=== PATIENT | male | born 1965 | race Hispanic/Latino ===

== ENCOUNTER 2022-07-23 14:49 | Inpatient (IN) | payer OTHER ==
--- OUTSIDE RECORDS SUMMARY | 2022-07-23 14:52 | XMS REPORT | Continuity of Care Document ---
:1965 Author Organization [facility] t Address [address] [place] [address] [address] [place] [address] Care Team Providers Name Role Phone RASHIDA DIAZ Primary Care Physician Unavailable RASHIDA DIAZ Attending Clinician Unavailable Sven OWUSU, Rashida Attending Clinician RAHSIDA DIAZ Admitting Clinician Unavailable Payers Payer Name Policy Type Policy Number Effective Date Expiration Date S brigido [employer] [id number] 2021 MEDICARE 00:00:00 [employer] TRUE CHOICE [id number] 2021 MEDICARE 00:00:00 Problems This patient has no known problems. Allergies, Adverse Reactions, Alerts Allergy Allergy Status Severity Reaction(s) Onset Inactive Treating Comm ents Source Name Type Date Date Clinician NO KNOWN Drug Active [facility] Social History Social Habit Start Date Stop Date Quantity Comments Source Exposure to 2021-06-16 2021-06-26 Not sure [facility] SARS-CoV-2 (event) 00:00:00 14:11:00 Medica l Branch Sex Assigned At [birth year] [facility] 00:00:00 00:00:00 Medical Branch Smoking Status Start Date Stop Date Source Unknown if ever smoked [facility] Medications This patient has no known medications. Procedures Procedure Date / Time Performing Clinician Source Performed US RETROPERITONEAL 2021-07-03 17:10:00 Rashida Diaz [facility] COMPLETE Medical Branch Encounters Start End Encounter Admission Attending Care Care Encounter Source Date/Time Date/Time Type Type Clinicians Facility Department ID 2021-07-17 Outpatient [facility] [id number] [place] 09:10:10 [id number] [facility] 2021-07-15 Outpatient [facility] [id number] [place] 13:16:00 [id number] [facility] 2021-07-03 2021-07-03 Outpatient Emilia DIAZ [facility] [id number] [facility] 11:51:28 23:59:00 [facility]-03 2021-07-03 [facility] Sven [facility] [id number] Univers 11:30:00 23:59:00 Encounter Rashida [facility] [id number] [facility] [id number] [facility] [id number] [facility] [address] [place] 2021-07-03 2021-07-03 Outpatient Emilia DIAZ [facility] [id number] Univers 13:00:00 13:00:00 RASHIDA [id number] [facility] Results This patient has no known results.
[2022-07-23] MEDS ORDERED: FUROSEMIDE 40 MG/4 ML VIAL ONE (15:11)
[2022-07-23] MEDS ORDERED: NITROGLYCERIN 1 GM PKT TD ONE (15:11)
[2022-07-23 15:46] LABS: Absolute Lymphocytes (CBC) 0.5 K/uL (0.7-4.9); Hematocrit 21.9 % (39.6-49.0); Lymphocytes % 4.4 % (15.3-44.8); MCV 90.2 fL (80-100); MPV 8.1 fL (7.6-11.3); RBC Red Blood Cell Count 2.43 M/uL (4.33-5.43)
[2022-07-23 15:49] LABS: Protime INR 1.07
[2022-07-23 16:04] LABS: ALT/SGPT < 10 U/L (16-61); AST/SGOT 10 U/L (15-37); Alkaline Phosphatase 44 U/L (45-117); BUN Blood Urea Nitrogen 86 mg/dL (7-18); Bicarbonate 18 mEq/L (21-32); Bilirubin Direct 0.1 mg/dL (0-0.2); Bilirubin Indirect, Calculated 0.2 mg/dL (0.2-0.8); Bilirubin Total 0.3 mg/dL (0.2-1.0); Glomerular Filtration Rate 10 ml/min (=/>90); Glucose Level 115 mg/dL (74-106); Magnesium 2.9 mg/dL (1.6-2.4); NT PRO-BNP 18905 pg/mL (<125); Potassium 4.2 mEq/L (3.5-5.1); Protein, Total 6.8 g/dL (6.4-8.2); Sodium Level 141 mEq/L (136-145)
[2022-07-23 16:08] LABS: Troponin High Sensitivity 103.6 pg/mL (<58.9)
--- NOTE | 2022-07-23 16:51 | ER ---
Nurse's Notes [facility] Name: Zack Chapa Age: 57 yrs Sex: Male : 1965 Arrival Date: 07/23/2022 Time: 14:49 Bed 6 Private MD: Diagnosis: respiratory distress ;Acute and chronic respiratory failure with hypoxia;Subsequent non-ST elevation (NSTEMI) myocardial infarction;Acute pulmonary edema Presentation: 07/23 14:52 Chief complaint: Patient states: SOB for at least 24 hours. Swelling to legs got ll1 significantly worse overnight. No known fever. Chief complaint: EMS states: Ronchi bilaterally. FS 141, CPAP. HR 140's, down to 90's after CPAP. Coronavirus screen: Vaccine status: Patient reports receiving the 2nd dose of the covid vaccine. Client denies travel out of the [place] in the last 14 days. cough unrelated to allergies, difficulty breathing, shortness of breath, Client presents with at least one sign or symptom that may indicate coronavirus-19. Standard/surgical mask placed on the client. Ebola Screen: Patient denies travel to an Ebola-affected area in the 21 days before illness onset. Initial Sepsis Screen: Does the patient meet any 2 criteria? No. Patient's initial sepsis screen is negative. Does the patient have a suspected source of infection? Yes: Productive cough/pneumonia. Risk Assessment: Do you want to hurt yourself or someone else? Patient reports no desire to harm self or others. Onset of symptoms was July 22, 2022. 14:52 Method Of Arrival: Ambulatory ll1 14:52 Acuity: BETTY 2 ll1 Triage Assessment: 19:56 Respiratory: Onset: The symptoms/episode began/occurred yesterday, the patient has ha1 moderate shortness of breath. Historical: - Allergies: 14:55 No Known Allergies; ll1 - PMHx: 14:55 Diabetes mellitus; Hypertensive disorder; Kidney disease; blind R eye; ll1 - Immunization history:: Client reports receiving the 2nd dose of the Covid vaccine. - Social history:: Smoking status: Patient denies any tobacco usage or history of. Screenin:56 [facility] ED Fall Risk Assessment (Adult) History of falling in the last 3 months, kc6 including since admission No falls in past 3 months (0 pts) Confusion or Disorientation No (0 pts) Intoxicated or Sedated No (0 pts) Impaired Gait No (0 pts) Mobility Assist Device Used No (0 pt) Altered Elimination Yes (1 pt) Score/Fall Risk Level 0 - 2 = Low Risk Oriented to surroundings, Maintained a safe environment, Educated pt \T\ family on fall prevention, incl call for assistance when getting out of bed, Assessed \T\ reinforced patient's understanding of fall precautions, Hourly rounding (assess needs \T\ fall precautionary measures) done. Abuse screen: Denies threats or abuse. Denies injuries from another. Nutritional screening: No deficits noted. Tuberculosis screening: No symptoms or risk factors identified. Assessment: 14:58 Reassessment: respiratory at bedside placing pt on bipap. General: Appears in no kc6 apparent distress. uncomfortable, Behavior is calm, cooperative, appropriate for age. Pain: Denies pain. Neuro: Sweeney Agitation-Sedation Scale (RASS): 0 - Alert and Calm Level of Consciousness is awake, alert, obeys commands, Oriented to person, place, time, situation, Appropriate for age. Cardiovascular: Heart tones S1 S2 present Capillary refill < 3 seconds Edema is 4+ to left midcalf, left ankle, left foot, left toes, left upper arm, left elbow, left forearm, left wrist, left hand, left fingers, right midcalf, right ankle, right foot and right toes Rhythm is sinus rhythm Chest pain is denied. Respiratory: Reports shortness of breath at rest on exertion labored breathing Airway is patent Trachea midline Respiratory effort is even, labored, Respiratory pattern is symmetrical, tachypnea Breath sounds with crackles bilaterally. Breath sounds with rhonchi bilaterally. GI: No signs and/or symptoms were reported involving the gastrointestinal system. : No signs and/or symptoms were reported regarding the genitourinary system. EENT: No signs and/or symptoms were reported regarding the EENT system. Derm: No signs and/or symptoms reported regarding the dermatologic system. Skin is intact, Skin is pink, warm \T\ dry. Musculoskeletal: No signs and/or symptoms reported regarding the musculoskeletal system. Circulation, motion, and sensation intact. Capillary refill < 3 seconds, Range of motion: intact in all extremities. 15:42 Reassessment: Patient appears in no apparent distress at this time. No changes from kc6 previously documented assessment. Patient and/or family updated on plan of care and expected duration. Pain level reassessed. Patient is alert, oriented x 3, equal unlabored respirations, skin warm/dry/pink. 16:34 Reassessment: Patient appears in no apparent distress at this time. No changes from kc6 previously documented assessment. Patient and/or family updated on plan of care and expected duration. Pain level reassessed. Patient is alert, oriented x 3, equal unlabored respirations, skin warm/dry/pink. 17:34 Reassessment: Patient appears in no apparent distress at this time. No changes from kc6 previously documented assessment. Patient and/or family updated on plan of care and expected duration. Pain level reassessed. Patient is alert, oriented x 3, equal unlabored respirations, skin warm/dry/pink. 17:45 Reassessment: please see [facility] for further charting. kc6 Vital Signs: 14:52 BP 158 / 89; Pulse 97; Resp 25; Temp 99; Pulse Ox 99% ; Weight 115.21 kg; Height 5 ft. ll1 11 in. ; Pain 0/10; 15:42 BP 144 / 72; Pulse 87; Resp 20 S; Pulse Ox 99% on BiPAP; kc6 16:34 BP 145 / 81; Pulse 88; Resp 19 S; Pulse Ox 97% on BiPAP; kc6 17:56 BP 169 / 85; Pulse 88; Resp 19 S; Pulse Ox 99% on BiPAP; kc6 14:52 Body Mass Index 35.42 (115.21 kg, 180.34 cm) ll1 14:52 Pain Scale: Adult ll1 ED Course: 14:52 Patient arrived in ED. ll1 14:52 Fausto Marinelli MD is Attending Physician. jr11 14:55 Triage completed. ll1 14:56 Brenda Marquez, NYDIA is Primary Nurse. kc6 14:56 Arm band placed on Patient placed in an exam room, on a stretcher. ll1 14:56 Maintain EMS IV. Dressing intact. Good blood return noted. Site clean \T\ dry. Gauge \T\ jasen 6 site: 20G R HAND. 14:57 Patient has correct armband on for positive identification. Placed in gown. Bed in low kc6 position. Call light in reach. Side rails up X2. Client placed on continuous cardiac and pulse oximetry monitoring. NIBP monitoring applied. dry wall installer on. 15:27 Coud inserted, using sterile technique, 18 Fr. Returned clear yellow urine. To gravity kc6 drainage. Clamped. 16:34 XRAY Chest (1 view) In Process Unspecified. EDMS 16:49 Yaw Lora MD is Hospitalizing Provider. [facility] 19:55 No provider procedures requiring assistance completed. Patient admitted, IV remains in ha1 place. Administered Medications: 15:28 Drug: Nitroglycerin Transdermal Ointment 2 % 1 inches Route: Transdermal; Site: kc6 anterior chest wall; 17:56 Follow up: Response: No adverse reaction kc6 15:28 Drug: Furosemide IVP 80 mg Route: IVP; Site: right hand; kc6 17:56 Follow up: Response: No adverse reaction kc6 Medication: 19:56 VIS not applicable for this client. 1 Outcome: 16:51 Decision to Hospitalize by Provider. jr 19:55 Admitted to ICU accompanied by nurse, via stretcher, room 6, with oxygen, on monitor, [facility] with chart, Report called to NYDIA Gramajo 19:55 Condition: stable 19:55 Discharge instructions given to patient, Instructed on the need for admit, Demonstrated understanding of instructions. 20:47 Patient left the ED. kl Signatures: Dispatcher [employer] EDUT Eladia Lancaster RN RN kl Lewis, Lynsay, RN RN 1 Fausto Marinelli MD MD jr11 Sammie Tran RN RN ha1 Brenda Marquez RN RN kc6 Corrections: (The following items were deleted from the chart) 14:59 14:52 115.21 kg; Height 5 ft. 11 in.; BMI: 35.4; Pain 0/10, Adult; ll1 ll1
--- NOTE | 2022-07-23 16:51 | EDPHYS ---
Physician Documentation [facility] Name: Zack Chapa Age: 57 yrs Sex: Male : 1965 Arrival Date: 07/23/2022 Time: 14:49 Bed 6 Private MD: ED Physician Fausto Marinelli HPI: 07/23 16:04 Patient is a 57-year-old with history of diabetes hypertension kidney disease stroke jr11 blind on the right I here with shortness of breath, worsening over the last 2 days. Patient has had increasing swelling over the last few weeks, history of chronic kidney disease. Patient only complaining of shortness of breath, denies any fever denies any pain anywhere, review of system otherwise negative.. Historical: - Allergies: 14:55 No Known Allergies; ll1 - PMHx: 14:55 Diabetes mellitus; Hypertensive disorder; Kidney disease; blind R eye; ll1 - Immunization history:: Client reports receiving the 2nd dose of the Covid vaccine. - Social history:: Smoking status: Patient denies any tobacco usage or history of. ROS: 16:04 All other systems are negative. jr11 Exam: 16:04 Constitutional: Moderate distress secondary to increased work of breathing Head/Face: jr11 Blind to the right eye Chest/axilla: Normal chest wall appearance and motion. Nontender with no deformity. No lesions are appreciated. Cardiovascular: Regular rate and rhythm with a normal S1 and S2. No gallops, murmurs, or rubs. Normal PMI, no JVD. No pulse deficits. Respiratory: Bibasilar Rales with mild to moderate increased work of breathing. Abdomen/GI: Soft, non-tender, with normal bowel sounds. No distension or tympany. No guarding or rebound. No evidence of tenderness throughout. Back: No spinal tenderness. No costovertebral tenderness. Full range of motion. MS/ Extremity: 2+to sacrum Vital Signs: 14:52 BP 158 / 89; Pulse 97; Resp 25; Temp 99; Pulse Ox 99% ; Weight 115.21 kg; Height 5 ft. ll1 11 in. ; Pain 0/10; 15:42 BP 144 / 72; Pulse 87; Resp 20 S; Pulse Ox 99% on BiPAP; kc6 16:34 BP 145 / 81; Pulse 88; Resp 19 S; Pulse Ox 97% on BiPAP; kc6 17:56 BP 169 / 85; Pulse 88; Resp 19 S; Pulse Ox 99% on BiPAP; kc6 14:52 Body Mass Index 35.42 (115.21 kg, 180.34 cm) ll1 14:52 Pain Scale: Adult ll1 MDM: 14:58 Patient medically screened. jr11 15:13 ED course: EKG interpreted by me shows normal normal sinus rhythm, normal axis, normal jr11 intervals, no acute ST changes. monitoring tech interpreted by me shows normal sinus rhythm rate of 95. 16:04 Differential diagnosis: Patient with anasarca, shortness of breath, concern for jr11 significant volume overload. Likely with acute on chronic renal failure versus new onset heart failure. Patient will need admission for diuresis. Data reviewed: vital signs, nurses notes. 16:45 ED course: Spoke to Dr Carrizales and Sher, both informed and agree with lasix. Will admit. jr11 . 07/23 14:59 Order name: COVID-19 SARS RT PCR [facility] 07/23 15:39 Order name: Basic Metabolic Panel; Complete Time: 16:08 EDMS 07/23 15:39 Order name: Liver (Hepatic) Function; Complete Time: 16:08 EDMS 07/23 15:39 Order name: Troponin High Sensitivity; Complete Time: 16:08 EDMS 07/23 15:39 Order name: NT PRO-BNP; Complete Time: 16:08 EDMS 07/23 15:39 Order name: Magnesium; Complete Time: 16:08 EDMS 07/23 15:39 Order name: CBC with Automated Diff; Complete Time: 16:02 EDNM 07/23 15:39 Order name: Protime (+INR); Complete Time: 15:53 EDMS 07/23 15:39 Order name: D-Dimer; Complete Time: 15:53 EDMS 07/23 15:39 Order name: SARS-COV-2 RT PCR; Complete Time: 16:25 EDMS 07/23 17:05 Order name: Acute Hepatitis Panel EDNM 07/23 17:05 Order name: CBC with Automated Diff EDMS 07/23 17:05 Order name: CBC with Automated Diff EDNM 07/23 17:05 Order name: Comprehensive Metabolic Panel EDNM 07/23 17:05 Order name: Comprehensive Metabolic Panel EDNM 07/23 17:06 Order name: ABG Arterial Blood Gas EDMS 07/23 17:08 Order name: Urinalysis w/ reflexes [facility] 07/23 14:58 Order name: XRAY Chest (1 view) [facility] 07/23 17:07 Order name: Echo with Doppler [facility] 07/23 14:58 Order name: EKG; Complete Time: 15:[address] [facility] 07/23 17:05 Order name: Renal [facility] 07/23 14:58 Order name: Cardiac monitoring; Complete Time: 15:[address] [facility] 07/23 14:58 Order name: EKG - Nurse/Tech; Complete Time: 15:[address] [facility] 07/23 14:58 Order name: IV Saline Lock; Complete Time: 15:[address] [facility] 07/23 14:58 Order name: Labs collected and sent; Complete Time: 15:[address] [facility] 07/23 14:58 Order name: O2 Per Protocol; Complete Time: 15:[address] [facility] 07/23 14:58 Order name: O2 Sat Monitoring; Complete Time: 15:[address] [facility] 07/23 15:06 Order name: Tala; Complete Time: 15:28 kc6 Administered Medications: 15:28 Drug: Nitroglycerin Transdermal Ointment 2 % 1 inches Route: Transdermal; Site: [facility] anterior chest wall; 17:56 Follow up: Response: No adverse reaction [facility] 15:28 Drug: Furosemide IVP 80 mg Route: IVP; Site: right hand; [facility] 17:56 Follow up: Response: No adverse reaction 6 Disposition: 16:45 Critical Care:. [facility] Disposition Summary: 07/23/22 16:51 Hospitalization Ordered Hospitalization Status: Inpatient Admission [facility] Provider: Yaw Lora jr Location: Intensive Care Unit [facility] Condition: Fair [facility] Problem: new [facility] Symptoms: have improved [facility] Bed/Room Type: Standard [facility] Room Assignment: 6-(07/23/22 19:30) Diagnosis - respiratory distress jr11 - Acute and chronic respiratory failure with hypoxia jr11 - Subsequent non-ST elevation (NSTEMI) myocardial infarction jr11 - Acute pulmonary edema [facility] Forms: - Medication Reconciliation Form jr11 - SBAR form 11 Critical care time excluding procedures: 16:45 Critical care time: Bedside Care: 15 minutes, Consultation: 10 minutes, Family [facility] Intervention: 6 minutes. Total time: 31 minutes Signatures: Dispatcher [employer] [facility] Bela Horvath RN RN mw Kip Lancaster RN RN ll1 Fausto Marinelli MD MD jr11 Brenda Marquez RN RN kc6 Corrections: (The following items were deleted from the chart) 15:53 15:39 BASIC METABOLIC PANEL+C.LAB.BRZ ordered. EDMS EDMS 15:53 15:39 CBC+H.LAB.BRZ ordered. EDMS EDMS 15:53 15:39 D-DIMER+COAG.LAB.BRZ ordered. EDMS EDMS 15:53 15:39 HEPATIC FUNCTION+C.LAB.BRZ ordered. EDMS EDMS 15:53 15:39 MAGNESIUM+C.LAB.BRZ ordered. EDMS EDMS 15:53 15:39 PROBNP+C.LAB.BRZ ordered. EDMS EDMS 15:53 15:39 PROTIME (+INR)+COAG.LAB.BRZ ordered. EDMS EDMS 15:53 15:39 Troponin High Sensitivity+C.LAB.BRZ ordered. EDMS EDMS 19:30 16:51 jr11 mw
--- NOTE | 2022-07-23 17:06 | P.HP ---
Certification for Inpatient With expected LOS: >2 Midnights Practitioner: I am a practitioner with admitting privileges, knowledge of patient current condition, hospital course, and medical plan of care. Services: Services provided to patient in accordance with Admission requirements found in Title 42 Section 412.3 of the Code of Federal Regulations Patient History Date of Service: 07/23/22 Reason for admission: Respiratory failure gross anasarca renal failure History of Present Illness: Patient is 57 years of age with a history of left-sided stroke admitted with acute shortness of breath pulmonary edema gross anasarca currently came on over 2 days patient lives in a senior living chronic renal failure patient is currently on a BiPAP - Past Medical/Surgical History -: Diabetes -: Hypertension -: Stroke -: Chronic renal failure Review of Systems is unable to be obtained Physical Examination - Vital Signs Temperature: 97 F Blood Pressure: 158/89 Pulse: 97 Respirations: 5 Pulse Ox (%): 99 - Physical Exam General: Alert, Oriented x3, Cooperative Respiratory: Crackles/rales Cardiovascular: Normal S1 S2, Edema (Gross anasarca) Gastrointestinal: Normal bowel sounds, Non-distended Musculoskeletal: Swelling Integumentary: No rashes Neurological: Normal speech External genitalia: Edema - Studies Laboratory Data (last 24 hrs) 07/23/22 15:27: PT 11.8, INR 1.07 07/23/22 15:27: WBC 10.70, Hgb 7.1 L, Hct 21.9 L, Plt Count 313 07/23/22 15:27: Sodium 141, Potassium 4.2, BUN 86 H, Creatinine 5.99 H, Glucose 115 H, Magnesium 2.9 H, Total Bilirubin 0.3, AST 10 L, ALT < 10 L, Alkaline Phos phatase 44 L 07/23/22 14:58: PT Cancelled, INR Cancelled 07/23/22 14:58: WBC Cancelled, Hgb Cancelled, Hct Cancelled, Plt Count Cancelled 07/23/22 14:58: Sodium Cancelled, Potassium Cancelled, BUN Cancelled, Creatinine Cancelled, Glucose Cancelled, Magnesium Cancelled, Total Bilirubin Cancelled, AST Cancelled, ALT Cancelled, Alkaline Phosphatase Cancelled Assessment and Plan - Problems (Diagnosis) (1) Acute on chronic renal failure Current Visit: Yes Status: Acute Plan: Patient is 57 years of age senior living resident history of diabetes hypertension chronic renal failure history of stroke admitted with acute onset of shortness of breath chest x-ray shows pulmonary edema with anasarca worsening renal function his creatinine is 6 also has metabolic acidosis and is also anemic labs chest x-ray all reviewed will admit to the hospital start on Lasix albumin drip consult nephrology urine analysis on his are probably elevated secondary to his renal failure and is currently on BiPAP check arterial blood gases daily room air pulse ox patient's BNP is over 18,000 - Advance Directives Does patient have a Living Will: No Does patient have a Durable POA for Healthcare: No
--- NOTE | 2022-07-23 17:21 | RAD REPORT ---
EXAM DESCRIPTION: Geovanny Single View07/23/2022 4:32 pm CLINICAL HISTORY: Shortness of breath COMPARISON: none FINDINGS: Moderate bilateral pulmonary opacities. Heart is mildly to moderately enlarged IMPRESSION: Moderate bilateral pulmonary opacities may represent pulmonary edema or pneumonia
[2022-07-23 17:56] LABS: Arterial Blood Carboxyhemoglob 1.1 % (0-1.5); Blood Gas Oxyhemoglobin 95.3 % (94-97)
[2022-07-23] MEDS: ALBUMIN HUMAN 25% 12.5 GM, FUROSEMIDE 100 MG in NA CHLORIDE 0.9% 40 ML IV SCH ×2 (18:00→22:05)
[2022-07-23 19:28] LABS: Specific Gravity 1.008 (1.005-1.030); Urine Bacteria None Seen /HPF (<20); Urine Bilirubin NEGATIVE (Negative); Urine Blood 1+ (Negative); Urine Clarity Turbid (Clear); Urine Color Colorless (Yellow); Urine Glucose TRACE (Negative); Urine Mucus Slight /HPF (None Seen); Urine Protein 1+ (Negative); Urine Urobilinogen Normal (Normal); Urine WBC Clump Rare /HPF (None Seen)
[2022-07-23 19:28] LABS: Hepatitis B Core IgM Nonreactive (Nonreactive); Hepatitis B surface AG Interp. Nonreactive (Nonreactive); Hepatitis C Virus Ab Nonreactive (Nonreactive)
[2022-07-23] MEDS: HEPARIN 5000 UNIT/ML 1 ML VIAL SQ SCH (22:05)
[2022-07-24] MEDS: ALBUMIN HUMAN 25% 12.5 GM, FUROSEMIDE 100 MG in NA CHLORIDE 0.9% 40 ML IV SCH ×4 (04:07→20:35)
[2022-07-24 04:59] LABS: Absolute Lymphocytes (CBC) 0.4 K/uL (0.7-4.9); Hematocrit 21.3 % (39.6-49.0); Lymphocytes % 4.3 % (15.3-44.8); RBC Red Blood Cell Count 2.37 M/uL (4.33-5.43)
[2022-07-24 05:19] LABS: AST/SGOT 10 U/L (15-37); Albumin 3.2 g/dL (3.4-5.0); Alkaline Phosphatase 42 U/L (45-117); BUN Blood Urea Nitrogen 85 mg/dL (7-18); Bicarbonate 18 mEq/L (21-32); Bilirubin Total 0.4 mg/dL (0.2-1.0); Glomerular Filtration Rate 10 ml/min (=/>90); Glucose Level 110 mg/dL (74-106); Protein, Total 6.6 g/dL (6.4-8.2); Sodium Level 142 mEq/L (136-145)
[2022-07-24 05:20] LABS: ALT/SGPT < 10 U/L (16-61)
[2022-07-24] MEDS: HEPARIN 5000 UNIT/ML 1 ML VIAL SQ SCH (09:00)
--- NOTE | 2022-07-24 10:07 | P.PN ---
Subjective Date of Service: 07/24/22 Chief Complaint: Respiratory failure gross anasarca renal failure Subjective: Improving (Patient is improving doing well doing better off the BiPAP diuresing) Review of Systems General: Weakness Respiratory: Shortness of Breath Physical Examination - Vital Signs Temperature: 97.3 F Blood Pressure: 151/89 Pulse: 90 Respirations: 21 Pulse Ox (%): 96 - Physical Exam General: Alert, Oriented x3 Respiratory: Clear to auscultation bilaterally, Diminished Cardiovascular: Edema - Studies Laboratory Data (last 24 hrs) 07/23/22 15:27: PT 11.8, INR 1.07 07/23/22 15:27: WBC 10.70, Hgb 7.1 L, Hct 21.9 L, Plt Count 313 07/23/22 15:27: Sodium 141, Potassium 4.2, BUN 86 H, Creatinine 5.99 H, Glucose 115 H, Magnesium 2.9 H, Total Bilirubin 0.3, AST 10 L, ALT < 10 L, Alkaline Phosphatase 44 L 07/23/22 14:58: PT Cancelled, INR Cancelled 07/23/22 14:58: WBC Cancelled, Hgb Cancelled, Hct Cancelled, Plt Count Cancelled 07/23/22 14:58: Sodium Cancelled, Potassium Cancelled, BUN Cancelled, Creatinine Cancelled, Glucose Cancelled, Magnesium Cancelled, Total Bilirubin Cancelled, AST Cancelled, ALT Cancelled, Alkaline Phosphatase Cancelled Assessment And Plan - Current Problems (Diagnosis) (1) Acute on chronic renal failure Current Visit: Yes Status: Acute Plan: Patient admitted with acute on chronic renal failure gross anasarca volume overload pulmonary edema currently Lasix albumin drip diuresing renal function is slightly worse awaiting nephrology consult pressure is also elevated patient is also mildly anemic hemoglobin of 6.9 no significant change from his underlying chronic renal failure he also has a decubitus ulcer patient is also on pioglitazone that may have caused volume overload hold off right now Qualifiers: Chronic kidney disease stage: stage 4 (severe)
[2022-07-24] MEDS ORDERED: LACTULOSE 20 GM/30 ML UCUP PO PRN (10:08)
[2022-07-24] MEDS ORDERED: ACETAMINOPHEN 325 MG TABLET PO PRN (10:08)
[2022-07-24] MEDS: TIMOLOL MALEAT OPTH SCH ×2 (10:15→20:39)
[2022-07-24] MEDS: DORZOLAMIDE HCL OPTH SCH ×2 (10:15→20:39)
[2022-07-24] MEDS ORDERED: MANNITOL 25% 12.5 GM/50 ML VIAL IV ONE ×2 (11:00→12:00)
[2022-07-24] MEDS ORDERED: EPOETIN ALFA-EPBX 10,000 UNIT/ML VIAL SQ ONE (12:00)
--- NOTE | 2022-07-24 12:07 | RAD REPORT ---
EXAM DESCRIPTION: RAD - Chest Single View - 07/24/2022 11:59 am CLINICAL HISTORY: Just of heart failure Chest pain. COMPARISON: Chest Single View dated 07/23/2022 FINDINGS: Portable technique limits examination quality. Moderate bilateral pulmonary opacities are present, appearing slightly progressive since yesterday's study. This may represent pulmonary edema or pneumonia. The heart is moderately enlarged.Small bilate ral pleural effusions. IMPRESSION: Mild worsening in lung aeration since yesterday's study.
--- NOTE | 2022-07-24 13:53 | CON ---
History Of Present Illness: The patient is seen in intensive care unit in room 6. He seems to be alert, currently on BiPAP, making it difficult for him to talk much. He is breathing at about 15-20, temperature is afebrile with 97.3 Fahrenheit, pain is level 0. Currently, O2 sats are running about 96% to 99% that is on BiPAP. The patient does seem to be struggling slightly to breathe. He has significant swelling with positive for edema bilaterally with chronic skin changes indicative of chronic lymphedema as well and venous congestion. The patient also seems to have significant edema in his upper extremities. He had a stroke in the past and has paralysis on the right side as well. The patient is unable to move around too much currently, he seems to be very deconditioned. He seems to be having difficulty breathing as well. Currently, he is on albumin and Lasix drip. He has been having some urine output, but his volume overload is significant with perhaps another 15-20 L of fluid on him, including his face, arms, trunk, and lower extremities all slight swollen. He is currently on amlodipine as well. His blood pressure is still running high. He is on Lasix drip. He is on albumin to allow him to bring the third space fluid in and then diurese somewhat better. The patient is tolerating this well for now. His urine output has been reasonable with about 1589 mL negative over the last 24 hours. The patient has had a bowel movement also recorded on the 15 on evaluation of his past medical history. Patient currently has crackles in his lungs. He is significantly volume overload right now. His abdomen is soft. Extremities revealed significant edema positive for bilaterally. Laboratory Data: Reviewed. His labs show significantly low hemoglobin at 6.9, hematocrit 21.3. Yesterday was 7.1. His WBC count is 10.4, his MCV is about 90, platelet count of 290. Chemistry shows sodium 142, potassium 4.0, chloride 114, bicarb is 18, BUN is 85, creatinine is 6.05, albumin is 3.2. His TSH level is pending. Past Medical History: Significant for stroke with hemiparesis on the right side. He has also diabetes and also history of chronic kidney disease, which has been significant in the past. The patient has followed with Dr. Machuca in the past and has been told that he will likely need dialysis in the future and he remembers that. Assessment And Plan: The patient has chronic kidney disease with acute kidney injury. The patient with significant volume overload at this point. Significantly low hemoglobin, which seems to be chronic in nature. The patient also has some metabolic acidosis and has anasarca. At this point, we will go ahead and plan for dialysis. I have discussed this with the patient who is agreeable. Also given his respiratory failure with hypoxemia, currently being on BiPAP. We will go ahead and give him a unit of blood to help with the hemoglobin to come up, especially when he is going to be getting a dialysis catheter for dialysis. The patient is agreeable to removing his DNR status and be full code as he understands that if he gets on dialysis and gets fluid off, his breathing improved, and if he is going to have a breathing problem while dialysis is being planned and initiated, he is agreeable to being intubated. I have discussed this with Dr. Lora who is the attending on the case and also Pulmonary Critical Care. I have also discussed with Monique who is the patient's RN in the ICU. The patient's has also been called and informed and is in agreement with this plan. So the a plan going forward is dialysis catheter placement. Dr. Story has been contacted, likely will be able to do it tomorrow. I will plan to dialyze him after catheter placement, either tomorrow or Tuesday morning. Plan will be over the next few days to remove fluid with ultrafiltration as tolerated, perhaps the patient will be on mannitol albumin support on dialysis to allow the fluid to move back in as patient has significant anasarca and getting back to his EDW. In the meanwhile, we will give him a Retacrit shot and may use further Retacrit depending on his need to keep his hemoglobin in reasonable check. We will give him a unit of blood right now, we will give him an amp of bicarb and continue to monitor on Lasix and albumin drip in ICU. The patient's condition continues to be critical. I have discussed this with the patient and there is a possibility that if his condition deteriorates, he may need intubation. The patient is agreeable to getting that. /JOHN Voice ID: [id number] Report ID: [id number] CLIVE
[2022-07-24] MEDS: HYDRALAZINE HCL 25 MG TABLET PO SCH ×2 (14:00→20:34)
[2022-07-24] MEDS ORDERED: NA CHLORIDE 0.9% 50 ML ONE (15:27)
[2022-07-24] MEDS ORDERED: FUROSEMIDE 40 MG/4 ML VIAL IV ONE (16:50)
[2022-07-24] MEDS: LATANOPROST OPTH SCH (20:39)
[2022-07-24 21:29] LABS: Hematocrit 23.7 % (39.6-49.0)
[2022-07-25] MEDS: ALBUMIN HUMAN 25% 12.5 GM, FUROSEMIDE 100 MG in NA CHLORIDE 0.9% 40 ML IV SCH ×5 (01:51→18:52)
[2022-07-25 05:12] LABS: Absolute Lymphocytes (CBC) 0.5 K/uL (0.7-4.9); Lymphocytes % 3.5 % (15.3-44.8); MPV 8.2 fL (7.6-11.3); RBC Red Blood Cell Count 2.78 M/uL (4.33-5.43)
[2022-07-25 05:29] LABS: Albumin 3.7 g/dL (3.4-5.0); Phosphorus 6.5 mg/dL (2.5-4.9); Potassium 3.9 mEq/L (3.5-5.1)
[2022-07-25] MEDS ORDERED: NS 0.9% VIAL 10 ML ONE (07:35)
[2022-07-25] MEDS ORDERED: NA CHLORIDE 0.9% 100 ML ONE (07:36)
[2022-07-25] MEDS ORDERED: LIDOCAINE 1% 20 ML MDV ONE (07:36)
--- NOTE | 2022-07-25 08:16 | P.CNS ---
Date of Consult: 07/25/22 Reason for consult: Needs urgent dialysis History of present illness: 57-year-old female with history of chronic renal failure was admitted with pulmonary edema and shortness of breath with significant fluid overload. Patient was evaluated by the nephrology team. Patient needs emergent dialysis. Patient denies any fever or chills, sore throat, runny nose, cough, headache, dizziness or chest pain. Review of systems: Otherwise unremarkable Past medical history: Hypertension, diabetes, stroke, chronic renal failure and now with acute renal failure Past surgical history: Cardiac stents Allergies: None Social history: Patient currently does not smoke or drink Family history: Noncontributory Vital signs: Reviewed Physical exam: Awake alert oriented x3 Head and neck exam: No neck masses Chest: Diminished breath sounds Heart: S1-S2 Abdomen: Soft Extremity: Neurovascular intact, nontender Neuro: Weak left side Diagnostic data: BUN and creatinine are significantly elevated, white count is 13,000, INR is within normal limits and patient is on Plavix Assessment: Acute renal failure in patient with respiratory distress Plan/recommendation: Emergent placement of a tunneled dialysis catheter. Patient understands risks, benefits and alternatives and agrees to procedure. CC:
[2022-07-25] MEDS ORDERED: Phenylephrine HCl 10 MG/ML 1 ML VIAL ONE (08:26)
[2022-07-25] MEDS ORDERED: MIDAZOLAM HCL 2 MG/2 ML INJ ONE (08:26)
[2022-07-25] MEDS ORDERED: propofoL 200 MG/20 ML VIAL IV ONE ×2 (08:26→08:27)
[2022-07-25] MEDS ORDERED: FENTANYL CITR 100 MCG/2 ML ONE (08:27)
[2022-07-25] MEDS ORDERED: NS 0.9% VIAL 20 ML ONE (08:27)
[2022-07-25] MEDS ORDERED: CEFAZOLIN SODIUM 2 GM/VIAL ONE (08:28)
[2022-07-25] MEDS ORDERED: SUCCINYLCHOLINE 20 MG/ML (10 ML) IV ONE (08:28)
[2022-07-25] MEDS: DOCUSATE NA 100 MG CAP PO SCH (09:00)
[2022-07-25] MEDS: HYDRALAZINE HCL 25 MG TABLET PO SCH ×3 (09:00→20:48)
[2022-07-25] MEDS: CALCITROL 0.25 MCG CAP PO SCH (09:00)
[2022-07-25] MEDS: AMLODIPINE 10 MG TAB PO SCH (09:00)
[2022-07-25] MEDS: CLOPIDOGREL 75 MG TABLET PO SCH (09:00)
[2022-07-25] MEDS: SERTRALINE HCL 50 MG TAB PO SCH (09:00)
[2022-07-25] MEDS: NA CHLORIDE 0.9% 500 ML ONE (09:04)
[2022-07-25] MEDS ORDERED: ROCURONIUM 50 MG/5 ML VIAL IV ONE (09:07)
[2022-07-25] MEDS: HEPARIN 5000 UNIT/ML 1 ML VIAL ONE ×2 (09:10→09:12)
--- NOTE | 2022-07-25 09:31 | P.OP ---
Date of Service: 07/25/22 Preop diagnosis: Acute renal failure, pulmonary edema and respiratory failure Postop diagnosis: Same Procedure performed: Placement of right internal jugular tunneled dialysis catheter, interpretation of fluoroscopy Surgeon: Pascual Story MD Tester Compressed Gases: None Estimated blood loss: Minimal Specimen: None Findings: Normal anatomy Anesthesia: General Complications: None Drains: None Fluids and blood products: Nonapplicable Disposition: ICU Operative note: Patient brought to the OR and placed in supine position. General anesthesia begun. Patient prepped and draped in usual sterile fashion. Lidocaine 1% infiltrated locally. 18-gauge needle used to access the right IJ vein. Guidewire passed and position confirmed with fluoroscopy. Counterincision made on the right anterior chest. Tunneling device used to tunnel the dialysis catheter between the 2 wounds. Seldinger technique used. Tip of the catheter placed in the SVC under fluoroscopy. Catheter flushed with heparin and packed with heparin with good blood flow. Wound closed with 3-0 chromic. 3-0 nylon used to secure the tube to the chest wall. Sterile dressing applied. Patient taken to ICU intubated in critical but stable condition. Chest x-ray has been ordered. CC:
--- NOTE | 2022-07-25 09:31 | P.PN ---
Subjective Date of Service: 07/25/22 Chief Complaint: Respiratory failure patient is currently on a ventilator This postdialysis cath had to be intubated, unable to lie down flat for leesa cath insertion. [facility] Review of Systems is unable to be obtained Physical Examination - Vital Signs Temperature: 97 F Blood Pressure: 167/70 Pulse: 97 Respirations: 19 Pulse Ox (%): 95 - Physical Exam General: Unresponsive Respiratory: Clear to auscultation bilaterally, Diminished Cardiovascular: Regular rate/rhythm, Normal S1 S2, Edema Musculoskeletal: Other (Gross anasarca) Integumentary: Rash(es) Assessment And Plan - Current Problems (Diagnosis) (1) Acute on chronic renal failure Current Visit: Yes Status: Acute Plan: S/p lysis cath insertion was intubated and on Lasix drip seen by nephrology plan to proceed with dialysis labs reviewed patient was transfused 1 unit of packed red blood cells Edgar can wean and extubate am ? LAbs reviewed. Vent protocol Qualifiers: Chronic kidney disease stage: stage 4 (severe)
[2022-07-25] MEDS ORDERED: Mastisol Adhesive Liq ONE (09:34)
[2022-07-25] MEDS ORDERED: dexAMETHasone 10 MG/ML VIAL ONE (09:49)
[2022-07-25] MEDS ORDERED: LANO/MINERAL OIL/PETRO 3.5 GM ONE (09:50)
--- NOTE | 2022-07-25 10:00 | RAD REPORT ---
[facility] 6[facility]54 am CLINICAL HISTORY: Just of heart failure COMPARISON: Chest Single View dated 07/24/2022; Chest Single View dated 07/23/2022 TECHNIQUE: Portable AP view of the chest. FINDINGS: Stable extensive patchy alveolar opacities throughout both lungs. Decreased inspiratory ef fort. No pneumothorax or effusion. The cardiomediastinal contours are unremarkable. IMPRESSION: Stable extensive patchy airspace opacities bilaterally which may relate to pulmonary salvatore ma or multifocal pneumonia.
[2022-07-25] MEDS ORDERED: FENTANYL CITR 100 MCG/2 ML IV PRN (10:01)
[2022-07-25] MEDS ORDERED: LORazepam 2 MG/ML VIAL IV PRN (10:01)
--- NOTE | 2022-07-25 10:03 | RAD REPORT ---
EXAM DESCRIPTION: RAD - Fluoroscopy <1 Hour - 07/25/2022 9:46 am CLINICAL HISTORY: HD CATH COMPARISON: None available. FINDINGS: 2 images were sent to PACS, documenting needle positions during an image guided hemodialys is catheter insertion procedure. No radiologist was available for the procedure, nor will any image i nterpretation he provided. Please refer to the procedural report for additional details. Fluoroscopy time: 0.1 minutes. IMPRESSION: Documentation of fluoroscopy utilization as above.
[2022-07-25] MEDS: DORZOLAMIDE HCL OPTH SCH ×2 (10:15→20:49)
[2022-07-25] MEDS: TIMOLOL MALEAT OPTH SCH ×2 (10:15→20:49)
[2022-07-25] MEDS: DEXMEDETOMIDINE HCL 200 MCG in NA CHLORIDE 0.9% 98 ML IV SCH ×2 (11:02→18:03)
--- NOTE | 2022-07-25 12:03 | RAD REPORT ---
EXAM DESCRIPTION: RADChest Single View07/25/2022 10:27 am CLINICAL HISTORY: ET tube and HD catheter placement COMPARISON: Chest Single View dated 07/25/2022; Chest Single View dated 07/24/2022; Chest Single View dated 07/23/2022 TECHNIQUE: Portable AP view of the chest. FINDINGS: Endotracheal tube has been placed. Its tip terminates 4.5 centimeter above the ryan. Ent olive tube courses along the upper stomach. Right IJ hemodialysis catheter has been placed with its ti p projecting over the superior cavoatrial junction. Stable patchy bilateral airspace opacities. No pneumothorax or effusion. The cardiomediastinal conto urs are unremarkable. IMPRESSION: Satisfactory positioning of life support devices. Stable bilateral patchy airspace opaci ties.
--- NOTE | 2022-07-25 14:05 | PN ---
Date of Progress Note: 07/25/2022 Subjective: The patient is not able to answer questions. He is alert, opens his eyes, shakes his he ad. He is intubated currently. Continues to look very volume overloaded, significant edema positive for bilaterally. Crackles in his lungs and blood pressures are reasonable, but slightly on the elev ated side with systolic running between the 144-170 range. His pulse is around 80-100, irregular, re spirations around 18. His temperature is afebrile. The patient does have good sats, currently on e ventilator at about 100%. Laboratory Data: On evaluation of his lab work, the patient's labs show WBC is 13.6, hemoglobin 8.2, hematocrit 25, platelet count of 313. Chemistry shows sodium 141, potassium 3.9, chloride is 112, b icarb is 19, BUN is 89, creatinine is 6.16, glucose at 95, calcium of 6.5. BUN and creatinine yester day were 85 and 6.05. His BUN and creatinine from yesterday are marginally elevated. Albumin at abo ut 3.7. TSH was 0.995. Medications: Reviewed. The patient has been on calcitriol, amlodipine, and clopidogrel; however, e patient is currently not able to take p.o. intake. He is intubated. He has also got a fentanyl pa tch p.r.n. for pain and discomfort 8 or higher. He is on hydralazine p.o. Again, he is not taking p .o. medications currently. He is on lorazepam IV p.r.n. He has also been on Zoloft, which he is cur rently off due to intubation. Physical Examination: Vital Signs: As stated above. Abdomen: Soft. Lungs: With bilateral crackles. Extremities: With positive for edema. Neuro: The patient is currently intubated. Assessment And Plan: The patient's condition continues to be guarded. He had changed his code statu s after discussion with me yesterday. If he needed intubation, he would agree to that. Subsequently , he did need intubation as he could not lie flat and shortness of breath progressed. He has been in tubated since then and also has had dialysis catheter placed on his right chest wall. The dialysis c atheter site looks clean. He has it cleanly dressed currently. He is currently stable on the ventil ator, but significantly volume overloaded. I do feel that the patient is progressed to stage III, is going to need ongoing dialysis. The dialysis nurse has been informed. Dialysis orders are in for t estelita and tomorrow. The patient may need serial dialysis for the next few days to stabilize volume st atus. Perhaps after dialysis tomorrow, he may be in a condition to possibly be extubated or perhaps on Tuesday. I will defer obviously to the television anchor/Critical Care, Dr. Lora to make that prashanth art, appreciate his input. /BERTINL Voice ID: [id number] Report ID: [id number]
[2022-07-25] MEDS ORDERED: MANNITOL 25% 12.5 GM/50 ML VIAL IV PRN (15:00)
[2022-07-25] MEDS: NA CHLORIDE 0.9% 1,000 ML IV ONE ×2 (15:48→15:50)
[2022-07-25] MEDS ORDERED: NA CHLORIDE 0.9% 1,000 ML ONE (15:51)
[2022-07-25] MEDS: MANNITOL 25% 12.5 GM/50 ML VIAL IV PRN (16:00)
[2022-07-25] MEDS: HEPARIN 5000 UNIT/ML 1 ML VIAL SQ SCH (20:48)
[2022-07-25] MEDS: LATANOPROST OPTH SCH (20:49)
[2022-07-26] MEDS: ALBUMIN HUMAN 25% 12.5 GM, FUROSEMIDE 100 MG in NA CHLORIDE 0.9% 40 ML IV SCH ×3 (00:30→10:42)
[2022-07-26] MEDS: DEXMEDETOMIDINE HCL 200 MCG in NA CHLORIDE 0.9% 98 ML IV SCH ×2 (00:30→10:53)
[2022-07-26 05:10] LABS: Absolute Lymphocytes (CBC) 0.3 K/uL (0.7-4.9); Hematocrit 20.8 % (39.6-49.0); Lymphocytes % 2.1 % (15.3-44.8); MCV 89.9 fL (80-100); MPV 8.2 fL (7.6-11.3); RBC Red Blood Cell Count 2.31 M/uL (4.33-5.43)
[2022-07-26 05:35] LABS: Albumin 3.5 g/dL (3.4-5.0); Phosphorus 6.3 mg/dL (2.5-4.9); Potassium 3.6 mEq/L (3.5-5.1)
[2022-07-26 06:26] LABS: Hepatitis B Surface Ab - Quant < 3.10 mIU/mL (<8.0)
--- NOTE | 2022-07-26 07:50 | RAD REPORT ---
EXAM DESCRIPTION: [facility] Single View07/26/2022 6:09 am CLINICAL HISTORY: Respiratory failure COMPARISON: July 25, 2022 FINDINGS: Tip an endotracheal tube lies 1 centimeter above the level of the aortic arch. NG tube distal stomach/duodenal bulb. Minimal improvement in the diffuse bilateral pulmonary opacities. Cardiomegaly. There may the a right pleural effusion
[2022-07-26 08:38] LABS: Blood Morphology Comment NOT SEEN (NOT SEEN); Platelet Estimate ADEQ; Platelets, Giant FEW; White Blood Cell Scan OK (OK)
[2022-07-26] MEDS: CLOPIDOGREL 75 MG TABLET PO SCH (09:00)
[2022-07-26] MEDS: HYDRALAZINE HCL 25 MG TABLET PO SCH ×2 (09:00→14:00)
[2022-07-26] MEDS: DOCUSATE NA 100 MG CAP PO SCH (09:00)
[2022-07-26] MEDS: HEPARIN 5000 UNIT/ML 1 ML VIAL SQ SCH ×2 (09:00→21:22)
[2022-07-26] MEDS: AMLODIPINE 10 MG TAB PO SCH (09:00)
[2022-07-26] MEDS: CALCITROL 0.25 MCG CAP PO SCH (09:00)
[2022-07-26] MEDS: SERTRALINE HCL 50 MG TAB PO SCH (09:00)
[2022-07-26] MEDS: TIMOLOL MALEAT OPTH SCH ×2 (10:15→22:15)
[2022-07-26] MEDS: DORZOLAMIDE HCL OPTH SCH ×2 (10:15→22:15)
--- NOTE | 2022-07-26 10:53 | P.PN ---
Date of Service: 07/26/22 Vital Signs Temp Pulse Resp BP Pulse Ox 97.1 F 71 12 139/67 100 07/26/22 04:00 07/26/22 09:00 07/26/22 09:00 07/26/22 09:00 07/26/22 09:00 Medications Acetaminophen (Acetaminophen 325 Mg Tablet) 650 mg PO Q6HP PRN PRN Reason: Pain scale 2-4 (Mild)or T>101 Amlodipine Besylate (Amlodipine 10 Mg Tab) 10 mg PO DAILY [facility] Last Admin: 07/25/22 09:00 Dose: Not Given Calcitriol (Calcitrol 0.25 Mcg Cap) 0.25 mcg PO DAILY [facility] Last Admin: 07/25/22 09:00 Dose: Not Given Clopidogrel Bisulfate (Clopidogrel 75 Mg Tablet) 75 mg PO DAILY [facility] Last Admin: 07/25/22 09:00 Dose: Not Given Docusate Sodium (Docusate Na 100 Mg Cap) 100 mg PO DAILY [facility] Last Admin: 07/25/22 09:00 Dose: Not Given Fentanyl Citrate (Fentanyl Citr 100 Mcg/2 Ml) 25 mcg IV Q4HP PRN PRN Reason: Pain scale 8-10 (Severe) Heparin Sodium (Porcine) (Heparin 5000 Unit/Ml 1 Ml Vial) 5,000 unit SQ Q12HR [facility] Last Admin: 07/25/22 20:48 Dose: 5,000 unit Heparin Sodium (Porcine) (Heparin 1,000 Unit/Ml Vial) 4,000 unit IV EVERY HD PRN PRN Reason: FOR DIALYSIS CATHETER CARE Last Admin: 07/25/22 18:02 Dose: 4,000 unit Home Med (Latanoprost Ophth [Xalatan 0.005%*]) 1 drops OPTH BEDTIME [facility] Last Admin: 07/25/22 20:49 Dose: Not Given Home Med (Dorzolamide Hcl/Timolol Maleat [Dorzolamide-Timolol Eye Drops]) 1 ml OPTH Q12H [facility] Last Admin: 07/25/22 20:49 Dose: Not Given Hydralazine HCl (Hydralazine Hcl 25 Mg Tablet) 100 mg PO TID [facility] Last Admin: 07/25/22 20:48 Dose: Not Given Albumin Human 12.5 gm/Furosemide 100 mg/ Sodium Chloride 100 mls @ 20 mls/hr IV Q5H [facility] Last Admin: 07/26/22 10:42 Dose: 100 mls Dexmedetomidine HCl 200 mcg/ (Sodium Chloride) 100 mls @ 12.116 mls/hr IV TITR CHARANJIT; Protocol Last Admin: 07/26/22 00:30 Dose: 0.2 mcg/kg/hr, 12.1 mls/hr Lactulose (Lactulose 20 Gm/30 Ml Ucup) 20 gm PO DAILYPRN PRN PRN Reason: CONSTIPATION Lorazepam (Lorazepam 2 Mg/Ml Vial) 2 mg IV Q2HP PRN PRN Reason: Sedation-Propofol not effect Mannitol (Mannitol 25% 12.5 Gm/50 Ml Vial) 25 gm IV 1X PRN PRN Reason: DIALYSIS Last Admin: 07/25/22 16:00 Dose: 25 gm Mannitol (Mannitol 25% 12.5 Gm/50 Ml Vial) 25 gm IV EVERY HD PRN PRN Reason: Dialysis Sertraline HCl (Sertraline Hcl 50 Mg Tab) 50 mg PO DAILY [facility] Last Admin: 07/25/22 09:00 Dose: Not Given Sodium Chloride (Flush Normal Saline 10 Ml) 10 ml IV BID [facility] Last Admin: 07/25/22 20:49 Dose: 10 ml Assessment/ Plan: Nephrology Limited IH/ ROS due to intubation No acute events overnight PRBC ordered early this am for anemia Vitals, medications blood work and imaging reviewed in the chart NAD. Obese. CTA. RRR. Soft Abd. No C/C. LE Edema 2-3+. No rash. Sedated. ESRD Proteinuria -Acute HD as ordered -HBV negative -Arrange dialysis placement HTN with CKD/ CHF -Continue Amlodipine Diastolic CHF, A/C Acute Respiratory Failure -Acute HD with UF -Continue ventilatory support -Pulmonary/ CC following Anemia in chronic illness -PRBC as ordered to be given with HD -Retacrit X1 CKD MBD -Continue Calcitriol Greater than 30min patient care Laboratory Last Values WBC 10.70 thou/uL (4.3-10.9) 07/23/22 15:27 RBC 2.43 M/uL (4.33-5.43) L 07/23/22 15:27 Hgb 7.1 g/dL (13.6-17.9) L 07/23/22 15:27 Hct 21.9 % (39.6-49.0) L 07/23/22 15:27 MCV 90.2 fL (80-100) 07/23/22 15:27 MCH 29.3 pg (27.0-35.0) 07/23/22 15:27 MCHC 32.5 g/dL (32.0-36.0) 07/23/22 15:27 RDW 15.0 % (12.1-15.2) 07/23/22 15:27 Plt Count 313 thou/uL (152-406) 07/23/22 15:27 MPV 8.1 fL (7.6-11.3) 07/23/22 15:27 Neutrophils % 79.8 % (41.7-73.7) H 07/23/22 15:27 Lymphocytes % 4.4 % (15.3-44.8) L 07/23/22 15:27 Monocytes % 8.8 % (3.3-12.3) 07/23/22 15:27 Eosinophils % 6.6 % (0-4.4) H 07/23/22 15:27 Basophils % 0.4 % (0-1.3) 07/23/22 15:27 Absolute Neutrophils 8.5 K/uL (1.8-8.0) H 07/23/22 15:27 Absolute Lymphocytes 0.5 K/uL (0.7-4.9) L 07/23/22 15:27 Absolute Monocytes 0.9 K/uL (0.1-1.3) 07/23/22 15:27 Absolute Eosinophils 0.7 K/uL (0-0.5) H 07/23/22 15:27 Absolute Basophils 0.0 K/uL (0-0.5) 07/23/22 15:27 Diff Path Review Cancelled 07/23/22 14:58 PT 11.8 SECONDS (9.5-12.5) 07/23/22 15:27 INR 1.07 07/23/22 15:27 D-Dimer 1979 FEUng/mL (<500) H 07/23/22 15:27 Sodium 141 mEq/L (136-145) 07/23/22 15:27 Potassium 4.2 mEq/L (3.5-5.1) 07/23/22 15:27 Chloride 111 mEq/L (98-107) H 07/23/22 15:27 Carbon Dioxide 18 mEq/L (21-32) L 07/23/22 15:27 Anion Gap 16.2 mEq/L (5.0-15.0) H 07/23/22 15:27 BUN 86 mg/dL (7-18) H 07/23/22 15:27 Creatinine 5.99 mg/dL (0.70-1.30) H 07/23/22 15:27 Est GFR (CKD-EPI) 10 ml/min (=/>90) L 07/23/22 15:27 Glucose 115 mg/dL (74-106) H 07/23/22 15:27 Calcium 8.5 mg/dL (8.5-10.1) 07/23/22 15: Magnesium 2.9 mg/dL (1.6-2.4) H 07/23/22 15:27 Total Bilirubin 0.3 mg/dL (0.2-1.0) 07/23/22 15:27 Direct Bilirubin 0.1 mg/dL (0-0.2) 07/23/22 15: Indirect Bilirubin 0.2 mg/dL (0.2-0.8) 07/23/22 15:27 AST 10 U/L (15-37) L 07/23/22 15:27 ALT < 10 U/L (16-61) L 07/23/22 15:27 Alkaline Phosphatase 44 U/L (45-117) L 07/23/22 15:27 Troponin I High Sens 103.6 pg/mL (<58.9) H* 07/23/22 15:27 NT-Pro-B Natriuret Pep 73740 pg/mL (<125) H 07/23/22 15:27 Serum Total Protein 6.8 g/dL (6.4-8.2) 07/23/22 15:27 Albumin 3.0 g/dL (3.4-5.0) L 07/23/22 15:27 Globulin 3.8 g/dL (2.3-3.5) H 07/23/22 15:27 Albumin/Globulin Ratio 0.8 (1.1-1.8) L 07/23/22 15:27 SARS-CoV-2 Rap RNA(RT-PCR) Negative (NEGATIVE) 07/23/22 15:
[2022-07-26] MEDS ORDERED: EPOETIN ALFA-EPBX 10,000 UNIT/ML VIAL SQ ONE ×2 (11:00→16:00)
--- NOTE | 2022-07-26 12:07 | P.PN ---
Subjective Date of Service: 07/26/22 Chief Complaint: Respiratory failure patient is currently on a ventilator Doing well hemodynamically stable alert responsive cooperative s/p dialysis Review of Systems is unable to be obtained Physical Examination - Vital Signs Temperature: 97.1 F Blood Pressure: 146/68 Pulse: 73 Respirations: 13 Pulse Ox (%): 100 - Physical Exam General: Alert, Cooperative Respiratory: Clear to auscultation bilaterally Cardiovascular: Edema Assessment And Plan - Current Problems (Diagnosis) (1) Acute on chronic renal failure Current Visit: Yes Status: Acute Plan: Patient is doing better he is alert responsive cooperative labs chemistries reviewed to wean off and extubate chest x-ray is abnormal bilateral patchy changes patient is a significant negative fluid balance Qualifiers: Chronic kidney disease stage: stage 4 (severe)
[2022-07-26] MEDS ORDERED: NA CHLORIDE 0.9% 100 ML ONE (14:34)
[2022-07-26] MEDS: MANNITOL 25% 12.5 GM/50 ML VIAL IV PRN (15:59)
--- NOTE | 2022-07-26 17:56 | EKG ---
Test Date: 2022-07-23 Test Time: 14:52:37 Red Leader: SHANICE MEASUREMENT RESULTS: Intervals: Rate: 102 FL: 184 QRSD: 90 QT: 356 QTc: 463 [place]: P: 61 FL: 184 QRS: 42 T: 71 INTERPRETIVE STATEMENTS: Sinus tachycardia Nonspecific ST abnormality Abnormal ECG No previous ECG available for comparison Electronically Signed On 07-26-22 17:51:18 CDT by Pardeep Wilks
[2022-07-26 18:08] LABS: Hematocrit 24.9 % (39.6-49.0)
[2022-07-26] MEDS: LOSARTAN POTASSIUM 50 MG TABLET PO SCH (21:00)
[2022-07-26] MEDS: atenoloL 25 MG TAB PO SCH (21:00)
[2022-07-26] MEDS: LATANOPROST OPTH SCH (21:00)
[2022-07-26] MEDS: FUROSEMIDE 40 MG/4 ML VIAL IV SCH (21:22)
--- NOTE | 2022-07-27 05:09 | P.PN ---
Subjective Date of Service: 07/26/22 Patient is clinically doing well. Plan is to extubate patient after hemodialysis. Patient is interacting and follow commands. Patient has had a stroke as left is left side weaker than his right. Otherwise, he is following commands really well. Clinical symptoms are improved. Review of Systems 10-point ROS is otherwise unremarkable Physical Examination - Vital Signs Temperature: 98.3 F Blood Pressure: 132/59 Pulse: 89 Respirations: 26 Pulse Ox (%): 100 - Physical Exam General: Alert, In no apparent distress, Oriented x3, Other (intubated and sedated) Respiratory: Crackles/rales Cardiovascular: Regular rate/rhythm, Normal S1 S2, No murmurs Gastrointestinal: Normal bowel sounds, Soft and benign, Non-distended, No tenderness Musculoskeletal: No clubbing, No swelling, No tenderness Neurological: Sensation intact, Cranial nerves 3-12 intact - Studies Medications List Reviewed: Yes Assessment & Plan - Problems (Diagnosis) (1) Acute respiratory failure Current Visit: Yes Status: Acute (2) ESRD (end stage renal disease) Current Visit: Yes Status: Acute (3) HTN (hypertension) Current Visit: Yes Status: Acute (4) DM2 (diabetes mellitus, type 2) Current Visit: Yes Status: Acute (5) CVA (cerebral vascular accident) Current Visit: Yes Status: Acute (6) Anemia Current Visit: Yes Status: Acute - Plan Plan: 1. Plan to extubate today 2. Hemodialysis per nephrology 3. Strict blood pressure and blood sugar control 4. Physical therapy evaluation after extubation 5. Monitor hemodynamics closely 6. Monitor H&H 7. GI/DVT prophylaxis Discharge Plan: Home Plan to discharge in: Greater than 2 days - Advance Directives Does patient have a Living Will: No Does patient have a Durable POA for Healthcare: Yes - Code Status/Comfort Care Code Status Assessed: Yes Code Status: Full Code Critical Care: No Time Spent Managing PTS Care (In Minutes): 35
[2022-07-27 05:16] LABS: Absolute Lymphocytes (CBC) 0.5 K/uL (0.7-4.9); Hematocrit 25.9 % (39.6-49.0); Lymphocytes % 3.6 % (15.3-44.8); MCV 87.8 fL (80-100); MPV 8.1 fL (7.6-11.3); RBC Red Blood Cell Count 2.95 M/uL (4.33-5.43)
[2022-07-27 05:28] LABS: AST/SGOT 13 U/L (15-37); Albumin 3.6 g/dL (3.4-5.0); Alkaline Phosphatase 36 U/L (45-117); BUN Blood Urea Nitrogen 66 mg/dL (7-18); Bicarbonate 23 mEq/L (21-32); Bilirubin Total 0.5 mg/dL (0.2-1.0); Glomerular Filtration Rate 15 ml/min (=/>90); Glucose Level 99 mg/dL (74-106); Potassium 3.3 mEq/L (3.5-5.1); Protein, Total 6.8 g/dL (6.4-8.2); Sodium Level 140 mEq/L (136-145)
[2022-07-27 05:37] LABS: ALT/SGPT < 10 U/L (16-61)
[2022-07-27] MEDS: FUROSEMIDE 40 MG/4 ML VIAL IV SCH ×4 (05:44→23:56)
--- NOTE | 2022-07-27 07:03 | ECHO ---
HEIGHT: 5 ft 11 in WEIGHT: 250 lb 4 oz DATE OF STUDY: 07/26/[address]: Yaw Lora MD 2-DIMENSIONAL: YES M.MODE: YES DOPPLER: YES COLOR FLOW: YES TDS: PORTABLE: YES DEFINITY: BUBBLE STUDY: DIAGNOSIS: CONGESTIVE HEART FAILURE CARDIAC HISTORY: CATHERIZATION: SURGERY: PROSTHETIC VALVE: PACEMAKER: MEASUREMENTS (cm) DIASTOLIC (NORMALS) SYSTOLIC (NORMALS) IVSd 1.0 (0.6-1.2) LA Diam 4.0 (1.9-4.0) LVEF 55% LVIDd 4.7 (3.5-5.7) LVIDs 3.4 (2.0-3.5) %FS 28% LVPWd 1.1 (0.6-1.2) Ao Diam 3.2 (2.0-3.7) 2 DIMENSIONAL ASSESSMENT: RIGHT ATRIUM: NORMAL LEFT ATRIUM: NORMAL RIGHT VENTRICLE: NORMAL LEFT VENTRICLE: NORMAL TRICUSPID VALVE: MILD TRICUSPID REGURGITATION MITRAL VALVE: MILD MITRAL REGURGITATION PULMONIC VALVE: NORMAL AORTIC VALVE: MILD AORTIC INSUFFICIENCY PERICARDIAL EFFUSION: NONE AORTIC ROOT: NORMAL LEFT VENTRICULAR WALL MOTION: NORMAL DOPPLER/COLOR FLOW: SEE BELOW COMMENTS: 1. NORMAL LEFT VENTRICULAR EJECTION FRACTION 50-55% 2. MODERATE DIASTOLIC DYSFUNCTION 3. MILD MITRAL REGURGITATION 4. MILD TRICUSPID REGURGITATION 5. MILD AORTIC INSUFFICIENCY 6. MODERATE PULMONARY HYPERTENSION WITH RIGHT VENTRICULAR SYSTOLIC PRESSURE OF 55-60 mmHg TECHNOLOGIST: HAYDEN BAPTISTE
[2022-07-27] MEDS ORDERED: POTASSIUM 25 MEQ EFFERV TAB FT ONE (07:49)
[2022-07-27] MEDS ORDERED: atenoloL 25 MG TAB PO ONE (08:15)
[2022-07-27] MEDS: CALCITROL 0.25 MCG CAP PO SCH (08:24)
[2022-07-27] MEDS: CLOPIDOGREL 75 MG TABLET PO SCH (08:24)
[2022-07-27] MEDS: LOSARTAN POTASSIUM 50 MG TABLET PO SCH ×2 (08:24→21:02)
[2022-07-27] MEDS: DOCUSATE NA 100 MG CAP PO SCH (08:25)
[2022-07-27] MEDS: HEPARIN 5000 UNIT/ML 1 ML VIAL SQ SCH ×2 (08:26→21:02)
--- NOTE | 2022-07-27 09:29 | P.PN ---
Subjective Date of Service: 07/27/22 Chief Complaint: Anasarca He was extubated yesterday and appears to be doing well this morning. He exhibits anasarca, but he states that this has improved. Troponin up-trend this morning; however, he is completely asymptomatic. Appreciate Cardiology recommendations. Review of Systems 10-point ROS is otherwise unremarkable Cardiovascular: Edema Physical Examination - Vital Signs Temperature: 98.3 F Blood Pressure: 144/79 Pulse: 93 Respirations: 24 Pulse Ox (%): 100 - Physical Exam General: Alert, In no apparent distress, Oriented x3 HEENT: Atraumatic, Sclerae nonicteric Neck: JVD distended Respiratory: Diminished, Crackles/rales (bibasilar) Cardiovascular: Regular rate/rhythm, Normal S1 S2, No gallops, No rubs, No murmu rs, Edema (2-3+ BLE pitting edema) Gastrointestinal: Normal bowel sounds, Soft and benign, Non-distended, No tenderness, No rebound, No guarding Musculoskeletal: No clubbing Integumentary: No rashes Neurological: Normal speech, Normal affect - Studies Medications List Reviewed: Yes Assessment And Plan - Plan # Anasarca due to Acute on Chronic Decompensated Diastolic Congestive Heart Failure with Preserved Ejection Fraction on End-Stage Renal Disease # Acute Respiratory Failure secondary to Pulmonary Edema s/p intubation with subsequent extubation - resolved # Moderate Pulmonary Hypertension - Consulted Cardiology - recommendations appreciated - Pulmonology and Nephrology consulted - recommendations appreciated - Transthoracic echocardiogram = "1. normal left ventricular ejection fraction 50-55% 2. moderate diastolic dysfunction 3. mild mitral regurgitation 4. mild tricuspid regurgitation 5. mild aortic insufficiency 6. moderate pulmonary hypertension with right ventricular systolic pressure of 55-60 mmHg" - Volume removal via hemodialysis and IV furosemide - NT-Pro BNP = [id number] - Continue home atenolol, losartan, calcitriol - Daily weights - Strict I/O - Cardiac diet, 2 L fluid restriction, 2 g Na restriction # Non-ST Segment Elevation Myocardial Infarction # History of Cerebrovascular Accident # Hypertension - Evaluation thus far: - EKG: without STEMI criteria, trend - Serial troponin: 103.6 -> 2592.6 - Transthoracic echocardiogram = "1. normal left ventricular ejection fraction 50-55% 2. moderate diastolic dysfunction 3. mild mitral regurgitation 4. mild tricuspid regurgitation 5. mild aortic insufficiency 6. moderate pulmonary hypertension with right ventricular systolic pressure of 55-60 mmHg" - D-dimer = 1978 - Management plan: - Consult Cardiology - recommendations appreciated - Ordered aspirin 324 mg PO x 1 - Start daily baby aspirin, rosuvastatin - Continue atenolol, losartan - Continue home clopidogrel # Elevated D-Dimer - D-Dimer = 1978 - Ordered bilateral lower extremity Doppler and V/Q scan # Type II Diabetes Mellitus - Hold home pioglitazone - Continue correction scale insulin # Anemia of Chronic Kidney Disease - Hgb stable - S/P 1 unit pRBCs this admission thus far - Continue home epoetin # Microscopic Hematuria - Noted on urinalysis - advised to follow-up with PCP on discharge for further evaluation Nadir Goldberg M.D.
[2022-07-27] MEDS ORDERED: ASPIRIN 81 MG CHEWABLE TABLET PO ONE (09:41)
[2022-07-27] MEDS ORDERED: ASPIRIN 81 MG CHEWABLE TABLET PO SCH (10:00)
[2022-07-27] MEDS: DORZOLAMIDE HCL OPTH SCH ×2 (10:15→22:15)
[2022-07-27] MEDS: TIMOLOL MALEAT OPTH SCH ×2 (10:15→22:15)
--- NOTE | 2022-07-27 11:31 | RAD REPORT ---
EXAM DESCRIPTION: US - Extrem Venous W Compress Oz - 07/27/2022 10:30 am CLINICAL HISTORY: Elevated D-dimer COMPARISON: None. TECHNIQUE: Real-time sonographic evaluation of the bilateral lower extremity deep venous systems was performed. FINDINGS: Normal compressibility, flow augmentation, phasic flow and spontaneous flow is identified in both the left and right lower extremity deep venous systems. No intraluminal filling defects seen. Mild subcutaneous soft tissue edema along the lower legs. IMPRESSION: No DVT in either lower extremity.
--- NOTE | 2022-07-27 12:08 | RAD REPORT ---
EXAM DESCRIPTION: NM - Vent Perfusion VQ Scan - 07/27/2022 11:51 am CLINICAL HISTORY: elevated ddimer COMPARISON: Chest Single View dated 07/26/2022 TECHNIQUE: 19.8mCi Xe-133 gas inhaled and 6.7mCi Tc-MAA IV administered. Planar ventilation scan was performed in posterior projection after Xe-133 gas inhalation (wash-in, e quilibrium, and wash-out phases) followed by perfusion scan with Tc-MAA IV in multiple projections. Examination is correlated with recent chest radiograph. FINDINGS: Markedly limited evaluation due to extensive parenchymal abnormalities seen on recent radi ograph. Markedly motion degraded ventilation images, with limited residual tracer on the washout images. Sugg estion of tracer clumping in the peripheral right basal lung and left mid lung. No mismatched segmental perfusion defects. Uneven tracer distribution throughout the lungs, with are as of increased tracer aggregates in the left mid lung and basal right lung, may relate to tracer ret ention since the ventilation phase. IMPRESSION: Very low probability of acute pulmonary embolism, allowing for technically limited asses sment as above. Areas of suspected tracer retention may relate to air trapping as detailed above.
[2022-07-27] MEDS: SERTRALINE HCL 50 MG TAB PO SCH (13:46)
[2022-07-27] MEDS: MANNITOL 25% 12.5 GM/50 ML VIAL IV PRN (15:30)
[2022-07-27] MEDS: AMINO ACIDS/PROTEIN HYDROLYS 30 ML LIQUID.PKT PO SCH (21:00)
[2022-07-27] MEDS: LATANOPROST OPTH SCH (21:00)
[2022-07-27] MEDS: atenoloL 25 MG TAB PO SCH (21:01)
[2022-07-27] MEDS: ROSUVASTATIN 10 MG TAB PO SCH (21:02)
--- NOTE | 2022-07-27 21:09 | P.PN ---
Date of Service: 07/27/22 Vital Signs Temp Pulse Resp BP Pulse Ox 97.3 F 78 25 H 118/48 L 94 07/27/22 20:00 07/27/22 20:00 07/27/22 20:00 07/27/22 20:00 07/27/22 20:00 Medications Acetaminophen (Acetaminophen 325 Mg Tablet) 650 mg PO Q6HP PRN PRN Reason: Pain scale 2-4 (Mild)or T>101 Amino Acids (Amino Acids/Protein Hydrolys 30 Ml Liquid.Pkt) 30 ml PO BID [facility] Aspirin (Aspirin 81 Mg Chewable Tablet) 81 mg PO DAILY [facility] Atenolol (Atenolol 25 Mg Tab) 25 mg PO BEDTIME [facility] Last Admin: 07/26/22 21:00 Dose: Not Given Calcitriol (Calcitrol 0.25 Mcg Cap) 0.25 mcg PO DAILY [facility] Last Admin: 07/27/22 08:24 Dose: 0.25 mcg Clopidogrel Bisulfate (Clopidogrel 75 Mg Tablet) 75 mg PO DAILY [facility] Last Admin: 07/27/22 08:24 Dose: 75 mg Docusate Sodium (Docusate Na 100 Mg Cap) 100 mg PO DAILY [facility] Last Admin: 07/27/22 08:25 Dose: 100 mg Fentanyl Citrate (Fentanyl Citr 100 Mcg/2 Ml) 25 mcg IV Q4HP PRN PRN Reason: Pain scale 8-10 (Severe) Furosemide (Furosemide 40 Mg/4 Ml Vial) 40 mg IV Q6HR [facility] Last Admin: 07/27/22 18:22 Dose: 40 mg Heparin Sodium (Porcine) (Heparin 5000 Unit/Ml 1 Ml Vial) 5,000 unit SQ Q12HR [facility] Last Admin: 07/27/22 08:26 Dose: 5,000 unit Heparin Sodium (Porcine) (Heparin 1,000 Unit/Ml Vial) 4,000 unit IV EVERY HD PRN PRN Reason: FOR DIALYSIS CATHETER CARE Last Admin: 07/27/22 13:32 Dose: 4,000 unit Home Med (Latanoprost Ophth [Xalatan 0.005%*]) 1 drops OPTH BEDTIME [facility] Last Admin: 07/26/22 21:00 Dose: Not Given Home Med (Dorzolamide Hcl/Timolol Maleat [Dorzolamide-Timolol Eye Drops]) 1 ml OPTH Q12H [facility] Last Admin: 07/27/22 10:15 Dose: Not Given Dexmedetomidine HCl 200 mcg/ (Sodium Chloride) 100 mls @ 12.116 mls/hr IV TITR [facility]; Protocol Last Admin: 07/26/22 10:53 Dose: 0.2 mcg/kg/hr, 12.1 mls/hr Lactulose (Lactulose 20 Gm/30 Ml Ucup) 20 gm PO DAILYPRN PRN PRN Reason: CONSTIPATION Lorazepam (Lorazepam 2 Mg/Ml Vial) 2 mg IV Q2HP PRN PRN Reason: Sedation-Propofol not effect Losartan Potassium (Losartan Potassium 50 Mg Tablet) 25 mg PO BID [facility] Last Admin: 07/27/22 08:24 Dose: 25 mg Mannitol (Mannitol 25% 12.5 Gm/50 Ml Vial) 25 gm IV 1X PRN PRN Reason: DIALYSIS Last Admin: 07/27/22 15:30 Dose: 25 gm Rosuvastatin Calcium (Rosuvastatin 10 Mg Tab) 10 mg PO BEDTIME [facility] Sertraline HCl (Sertraline Hcl 50 Mg Tab) 50 mg PO DAILY [facility] Last Admin: 07/27/22 13:46 Dose: 50 mg Sodium Chloride (Flush Normal Saline 10 Ml) 10 ml IV BID [facility] Last Admin: 07/27/22 08:26 Dose: 10 ml Assessment/ Plan: Nephrology Improving dyspnea No chest pain Extubated yesterday No acute events overnight Vitals, medications blood work and imaging reviewed in the chart NAD. Obese. CTA. RRR. Soft Abd. No C/C. LE Edema 2-3+. No rash. AAO. Normal speech. ESRD Proteinuria -HD TTS -HBV negative -Arrange dialysis placement Hypokalemia -Replete potassium HTN with CKD/ CHF -Discontinue Amlodipine -Start Atenolol -Start Losartan Diastolic CHF, A/C Acute Respiratory Failure -Acute HD with UF -Low sodium diet -Lasix IV q6h -Pulmonary/ CC following Anemia in chronic illness -PRBC PRN -Retacrit PRN CKD MBD -Continue Calcitriol Greater than 30min patient care
[2022-07-27] MEDS: MELATONIN 5 MG TABLET PO PRN (21:48)
[2022-07-28] MEDS: FUROSEMIDE 40 MG/4 ML VIAL IV SCH ×3 (05:45→21:13)
[2022-07-28 06:14] VITALS: BMI 33.3
[2022-07-28 06:27] LABS: Absolute Lymphocytes (CBC) 0.6 K/uL (0.7-4.9); Lymphocytes % 7.5 % (15.3-44.8); RBC Red Blood Cell Count 2.73 M/uL (4.33-5.43)
[2022-07-28 07:06] LABS: AST/SGOT 12 U/L (15-37); Albumin 2.9 g/dL (3.4-5.0); Alkaline Phosphatase 33 U/L (45-117); BUN Blood Urea Nitrogen 51 mg/dL (7-18); Bicarbonate 28 mEq/L (21-32); Bilirubin Total 0.4 mg/dL (0.2-1.0); Glomerular Filtration Rate 19 ml/min (=/>90); Glucose Level 122 mg/dL (74-106); Magnesium 2.2 mg/dL (1.6-2.4); Potassium 3.4 mEq/L (3.5-5.1); Protein, Total 5.9 g/dL (6.4-8.2); Sodium Level 141 mEq/L (136-145)
[2022-07-28 07:22] LABS: ALT/SGPT < 10 U/L (16-61)
[2022-07-28 07:43] LABS: Blood Morphology Comment NOT SEEN (NOT SEEN); Platelet Estimate ADEQ; White Blood Cell Scan OK (OK)
[2022-07-28] MEDS: CALCITROL 0.25 MCG CAP PO SCH (08:25)
[2022-07-28] MEDS: DOCUSATE NA 100 MG CAP PO SCH (08:25)
[2022-07-28] MEDS: ASPIRIN 81 MG CHEWABLE TABLET PO SCH (08:25)
[2022-07-28] MEDS: AMINO ACIDS/PROTEIN HYDROLYS 30 ML LIQUID.PKT PO SCH ×2 (08:25→21:00)
[2022-07-28] MEDS: CLOPIDOGREL 75 MG TABLET PO SCH (08:25)
[2022-07-28] MEDS: SERTRALINE HCL 50 MG TAB PO SCH (08:25)
[2022-07-28] MEDS: HEPARIN 5000 UNIT/ML 1 ML VIAL SQ SCH ×2 (08:26→21:13)
[2022-07-28] MEDS: TIMOLOL MALEAT OPTH SCH ×2 (08:26→21:25)
[2022-07-28] MEDS: DORZOLAMIDE HCL OPTH SCH ×2 (08:26→21:25)
[2022-07-28] MEDS: LOSARTAN POTASSIUM 50 MG TABLET PO SCH ×3 (08:26→21:14)
--- NOTE | 2022-07-28 08:55 | RAD REPORT ---
EXAM DESCRIPTION: RAD - Chest Single View - 07/28/2022 8:43 am CLINICAL HISTORY: rule-out TB Chest pain. COMPARISON: Chest Single View dated 07/26/2022; Chest Single View dated 07/25/2022; Chest Single View dated 07/25/2022; Chest Single View dated 07/24/2022 FINDINGS: Portable technique limits examination quality. Moderate bilateral pulmonary opacities are present, most likely representing pulmonary edema or pneum onia. The heart is mildly enlarged in size. Right-sided dialysis catheter has tip in the SVC.Due to t he significant pulmonary alveolar opacities bilaterally, tuberculosis cannot be effectively excluded on this radiograph.
--- NOTE | 2022-07-28 10:28 | P.PN ---
Subjective Date of Service: 07/28/22 Chief Complaint: Anasarca No acute events overnight. He reports that his breathing continues to improve. Troponin has trended flat, suggesting demand ischemia. He is awaiting outpatient dialysis chair placement, but he will need to be evaluated for tuberculosis prior to approval. Chest x-ray requested. He denies any chest pain, palpitations, or abdominal pain. Review of Systems 10-point ROS is otherwise unremarkable Respiratory: Shortness of Breath Cardiovascular: Edema Physical Examination - Vital Signs Temperature: 97.1 F Blood Pressure: 122/53 Pulse: 60 Respirations: 20 Pulse Ox (%): 94 - Studies Medications List Reviewed: Yes Assessment And Plan - Plan - Physical Exam General: Alert, In no apparent distress, Oriented x3 HEENT: Atraumatic, Sclerae nonicteric Neck: JVD not distended Respiratory: Diminished, Crackles/rales (faint bibasilar) Cardiovascular: Regular rate/rhythm, No murmurs, Edema (2+ BLE pitting edema) Gastrointestinal: Normal bowel sounds, Soft, Non-distended, No tenderness Musculoskeletal: No clubbing Integumentary: No rashes Neurological: Normal speech, Normal affect # Anasarca due to Acute on Chronic Decompensated Diastolic Congestive Heart Failure with Preserved Ejection Fraction on End-Stage Renal Disease # Acute Respiratory Failure secondary to Pulmonary Edema s/p intubation with subsequent extubation - resolved # Moderate Pulmonary Hypertension - Consulted Cardiology and spoke with Dr. Wilks - recommendations appreciated - Pulmonology and Nephrology consulted - recommendations appreciated - Transthoracic echocardiogram = "1. normal left ventricular ejection fraction 50-55% 2. moderate diastolic dysfunction 3. mild mitral regurgitation 4. mild tricuspid regurgitation 5. mild aortic insufficiency 6. moderate pulmonary hypertension with right ventricular systolic pressure of 55-60 mmHg" - Volume removal via hemodialysis and IV furosemide - Chest x-ray requested to exclude tuberculosis - NT-Pro BNP = 74228 - Continue home atenolol, losartan, calcitriol - Daily weights - Strict I/O - Cardiac diet, 2 L fluid restriction, 2 g Na restriction # Suspect Type II Non-ST Segment Elevation Myocardial Infarction (Demand Ischemia) due to above # History of Cerebrovascular Accident # Hypertension - Evaluation thus far: - EKG: without STEMI criteria, trend - Serial troponin: 103.6 -> 2592.6 -> 2326.6 -> 2150.5 - Transthoracic echocardiogram = "1. normal left ventricular ejection fraction 50-55% 2. moderate diastolic dysfunction 3. mild mitral regurgitation 4. mild tricuspid regurgitation 5. mild aortic insufficiency 6. moderate pulmonary hypertension with right ventricular systolic pressure of 55-60 mmHg" - D-dimer = 1978 - Management plan: - Consult Cardiology - recommendations appreciated - S/p aspirin 324 mg PO x 1 - Continue aspirin, rosuvastatin, atenolol, losartan - Continue home clopidogrel # Elevated D-Dimer - D-Dimer = 1978 - Bilateral lower extremity Doppler = "no DVT in either lower extremity." - V/Q scan = "very low probability of acute pulmonary embolism, allowing for technically limited assessment as above. Areas of suspected tracer retention may relate to air trapping as detailed above." # Type II Diabetes Mellitus - Hold home pioglitazone - Continue correction scale insulin # Anemia of Chronic Kidney Disease - Hgb stable - S/P 1 unit pRBCs this admission thus far - Continue home epoetin # Microscopic Hematuria - Noted on urinalysis - advised to follow-up with PCP on discharge for further evaluation Nadir Goldberg M.D.
[2022-07-28] MEDS: SPIRONOLACTONE 25 MG TABLET PO SCH (13:02)
[2022-07-28] MEDS ORDERED: SPIRONOLACTONE 25 MG TABLET PO SCH (13:26)
--- NOTE | 2022-07-28 16:01 | P.PN ---
Nephrology note (S) Pt reports improvement in dyspnea even if radiographically sig pulm opacities persist. No active complaints, hemodynamically stable in the ICU awaiting transfer to floor. Contreras remains in place, pt is producing urine. Vitals, medications blood work and imaging reviewed in the chart NAD. Obese. b/l air entry, diminished at bases. RRR. Soft Abd. ND, NT, contreras removed LE Edema 2+ distally. Awake, alert, oriented A/P) Progressive CKD in the setting of diabetic and hypertensive nephropathy with hx of proteinuria, now ESRD with initiation of dialysis -s/p consecutive HD sessions, metab profile stable on labs this AM. Next HD tmr HTN with CKD/ CHF -BP improved with dialysis and volume removal, cont current meds. Cont DOUG inhibitors since pt now on HD Diastolic CHF, A/C Acute hypoxic Respiratory Failure with acute pulm edema -Cont IV lasix since pt is non oliguric -Add Spironolactone since pt now on HD and K is not elevated -Cont UF on HD to establish EDW Christopher Hayes MD, SERGO
--- NOTE | 2022-07-28 19:13 | EKG ---
Test Date: 2022-07-27 Test Time: 08:25:09 [place]: DIONI MEASUREMENT RESULTS: Intervals: Rate: 89 FL: 164 QRSD: 94 QT: 400 QTc: 486 [place]: P: 34 FL: 164 QRS: 13 T: 50 INTERPRETIVE STATEMENTS: Normal sinus rhythm Nonspecific ST abnormality Prolonged QT Abnormal ECG Compared to ECG 07/23/2022 14:52:37 Prolonged QT interval now present Sinus tachycardia no longer present ST (T wave) deviation still present Electronically Signed On 07-28-22 19:10:29 CDT by Pardeep Wilks
[2022-07-28] MEDS: LATANOPROST OPTH SCH (21:00)
[2022-07-28] MEDS: atenoloL 25 MG TAB PO SCH (21:14)
[2022-07-28] MEDS: ROSUVASTATIN 10 MG TAB PO SCH (21:15)
[2022-07-28] MEDS: MELATONIN 5 MG TABLET PO PRN (21:27)
[2022-07-29 03:38] LABS: Hematocrit 24.2 % (39.6-49.0)
[2022-07-29 04:09] LABS: Potassium 3.4 mEq/L (3.5-5.1)
[2022-07-29] MEDS: FUROSEMIDE 40 MG/4 ML VIAL IV SCH ×2 (05:13→14:49)
[2022-07-29] MEDS ORDERED: ALBUMIN HUMAN 25% 100 ML IV ONE (08:30)
[2022-07-29] MEDS: LOSARTAN POTASSIUM 50 MG TABLET PO SCH (09:00)
[2022-07-29] MEDS: SPIRONOLACTONE 25 MG TABLET PO SCH (09:00)
[2022-07-29] MEDS: DORZOLAMIDE HCL OPTH SCH ×2 (09:49→21:29)
[2022-07-29] MEDS: TIMOLOL MALEAT OPTH SCH ×2 (09:49→21:29)
[2022-07-29] MEDS: CALCITROL 0.25 MCG CAP PO SCH (09:56)
[2022-07-29] MEDS: CLOPIDOGREL 75 MG TABLET PO SCH (09:56)
[2022-07-29] MEDS: DOCUSATE NA 100 MG CAP PO SCH (09:56)
[2022-07-29] MEDS: SERTRALINE HCL 50 MG TAB PO SCH (09:56)
[2022-07-29] MEDS: ASPIRIN 81 MG CHEWABLE TABLET PO SCH (09:56)
[2022-07-29] MEDS: HEPARIN 5000 UNIT/ML 1 ML VIAL SQ SCH ×2 (09:56→20:57)
[2022-07-29] MEDS: AMINO ACIDS/PROTEIN HYDROLYS 30 ML LIQUID.PKT PO SCH ×2 (10:01→20:55)
[2022-07-29] MEDS: MANNITOL 25% 12.5 GM/50 ML VIAL IV PRN (10:15)
--- NOTE | 2022-07-29 13:12 | RAD REPORT ---
EXAM DESCRIPTION: CT - Thorax Wo Con CLINICAL HISTORY: Chest pain rule out TB for HD chairtime COMPARISON: No comparisons FINDINGS: [id number] bilateral interstitial lung opacities are present. Alveolar lung opacity is present in the left lung base. Small to moderate bilateral pleural effusions. No pneumothorax. No axillary, mediastinal or hilar adenopathy. No concerning bony finding. No gross upper abdominal finding. All CT scans are performed using dose optimization technique as appropriate and may include automated exposure control or mA/KV adjustment according to patient size. IMPRESSION: [id number] interstitial lung opacities probably represents pulmonary edema. Small to moderate bilateral pleural effusions. Posterior left lung base alveolar opacity is most likely compressive atelectasis. The probability of tuberculosis is felt to be low, although cannot be completely excluded on the basi s of this CT.
[2022-07-29] MEDS ORDERED: TUBERCULIN PPD 5 TU/0.1 ML ID ONE (19:00)
[2022-07-29] MEDS: atenoloL 25 MG TAB PO SCH (20:56)
[2022-07-29] MEDS: ROSUVASTATIN 10 MG TAB PO SCH (20:56)
[2022-07-29] MEDS: LATANOPROST OPTH SCH (20:57)
--- NOTE | 2022-07-29 21:49 | P.PN ---
Date of Service: 07/29/22 Vital Signs Temp Pulse Resp BP Pulse Ox 97.9 F 66 18 129/67 99 07/29/22 20:00 07/29/22 20:56 07/29/22 20:00 07/29/22 20:56 07/29/22 20:00 Medications Acetaminophen (Acetaminophen 325 Mg Tablet) 650 mg PO Q6HP PRN PRN Reason: Pain scale 2-4 (Mild)or T>101 Amino Acids (Amino Acids/Protein Hydrolys 30 Ml Liquid.Pkt) 30 ml PO BID [facility] Last Admin: 07/29/22 20:55 Dose: 30 ml Aspirin (Aspirin 81 Mg Chewable Tablet) 81 mg PO DAILY [facility] Last Admin: 07/29/22 09:56 Dose: 81 mg Atenolol (Atenolol 25 Mg Tab) 25 mg PO BEDTIME [facility] Last Admin: 07/29/22 20:56 Dose: 25 mg Calcitriol (Calcitrol 0.25 Mcg Cap) 0.25 mcg PO DAILY [facility] Last Admin: 07/29/22 09:56 Dose: 0.25 mcg Clopidogrel Bisulfate (Clopidogrel 75 Mg Tablet) 75 mg PO DAILY [facility] Last Admin: 07/29/22 09:56 Dose: 75 mg Docusate Sodium (Docusate Na 100 Mg Cap) 100 mg PO DAILY [facility] Last Admin: 07/29/22 09:56 Dose: 100 mg Fentanyl Citrate (Fentanyl Citr 100 Mcg/2 Ml) 25 mcg IV Q4HP PRN PRN Reason: Pain scale 8-10 (Severe) Furosemide (Furosemide 40 Mg/4 Ml Vial) 40 mg IV Q8H [facility] Last Admin: 07/29/22 14:49 Dose: 40 mg Heparin Sodium (Porcine) (Heparin 5000 Unit/Ml 1 Ml Vial) 5,000 unit SQ Q12HR [facility] Last Admin: 07/29/22 20:57 Dose: 5,000 unit Heparin Sodium (Porcine) (Heparin 1,000 Unit/Ml Vial) 4,000 unit IV EVERY HD PRN PRN Reason: FOR DIALYSIS CATHETER CARE Last Admin: 07/27/22 13:32 Dose: 4,000 unit Home Med (Latanoprost Ophth [Xalatan 0.005%*]) 1 drops OPTH BEDTIME [facility] Last Admin: 07/29/22 20:57 Dose: Not Given Home Med (Dorzolamide Hcl/Timolol Maleat [Dorzolamide-Timolol Eye Drops]) 1 ml OPTH Q12H [facility] Last Admin: 07/29/22 21:29 Dose: Not Given Lactulose (Lactulose 20 Gm/30 Ml Ucup) 20 gm PO DAILYPRN PRN PRN Reason: CONSTIPATION Lorazepam (Lorazepam 2 Mg/Ml Vial) 2 mg IV Q2HP PRN PRN Reason: Sedation-Propofol not effect Mannitol (Mannitol 25% 12.5 Gm/50 Ml Vial) 25 gm IV 1X PRN PRN Reason: DIALYSIS Last Admin: 07/29/22 10:15 Dose: 25 gm Melatonin (Melatonin 5 Mg Tablet) 5 mg PO BEDTIME PRN PRN PRN Reason: INSOMNIA Last Admin: 07/28/22 21:27 Dose: 5 mg Rosuvastatin Calcium (Rosuvastatin 10 Mg Tab) 10 mg PO BEDTIME [facility] Last Admin: 07/29/22 20:56 Dose: 10 mg Sertraline HCl (Sertraline Hcl 50 Mg Tab) 50 mg PO DAILY [facility] Last Admin: 07/29/22 09:56 Dose: 50 mg Sodium Chloride (Flush Normal Saline 10 Ml) 10 ml IV BID [facility] Last Admin: 07/29/22 20:57 Dose: 10 ml Spironolactone (Spironolactone 25 Mg Tablet) 25 mg PO DAILY [facility] Last Admin: 07/29/22 09:00 Dose: Not Given Assessment/ Plan: Nephrology No dyspnea No chest pain No acute events overnight Vitals, medications blood work and imaging reviewed in the chart NAD. Obese. CTA. RRR. Soft Abd. No C/C. LE Edema trace. No rash. AAO. Normal speech. ESRD Proteinuria -HD TTS -HBV negative -Arrange dialysis placement -ID Consult for TB status -CT chest reviewed Hypokalemia -Replete potassium -Continue spironolactone HTN with CKD/ CHF -Continue Atenolol -DC Losartan Diastolic CHF, A/C Acute Respiratory Failure -Acute HD with UF -Low sodium diet -Change IV Lasix to oral Torsemide -Continue Spironolactone Anemia in chronic illness -PRBC PRN -Retacrit PRN CKD MBD -Continue Calcitriol Case reviewed with Dr. Goldberg
--- NOTE | 2022-07-29 22:37 | P.PN ---
Subjective Date of Service: 07/29/22 Chief Complaint: Anasarca He was seen this morning on dialysis. He reported no acute events overnight. Reviewed his case with Dr. Wolfe. It is felt that he wound benefit from an additional 1-[address] chest requested to evaluate for tuberculosis (for dialysis placement). He denies any chest pain, palpitations, or abdominal pain. Review of Systems 10-point ROS is otherwise unremarkable Cardiovascular: Edema Physical Examination - Vital Signs Temperature: 97.9 F Blood Pressure: 129/67 Pulse: 66 Respirations: 18 Pulse Ox (%): 99 - Studies Medications List Reviewed: Yes Assessment And Plan - Plan - Physical Exam General: Alert, In no apparent distress, Oriented x3 HEENT: Atraumatic, Sclerae nonicteric Neck: JVD not distended Respiratory: Diminished, Crackles/rales (faint bibasilar) Cardiovascular: Regular rate/rhythm, No murmurs, Edema (2+ BLE pitting edema) Gastrointestinal: Normal bowel sounds, Soft, Non-distended, No tenderness Musculoskeletal: No clubbing Integumentary: No rashes Neurological: Normal speech, Normal affect # Anasarca due to Acute on Chronic Decompensated Diastolic Congestive Heart Failure with Preserved Ejection Fraction on End-Stage Renal Disease # Acute Respiratory Failure secondary to Pulmonary Edema s/p intubation with subsequent extubation - resolved # Moderate Pulmonary Hypertension - Consulted Cardiology and spoke with Dr. Wilks - recommendations appreciated - Pulmonology and Nephrology consulted - recommendations appreciated - Transthoracic echocardiogram = "1. normal left ventricular ejection fraction 50-55% 2. moderate diastolic dysfunction 3. mild mitral regurgitation 4. mild tricuspid regurgitation 5. mild aortic insufficiency 6. moderate pulmonary hypertension with right ventricular systolic pressure of 55-60 mmHg" - Volume removal via hemodialysis and IV furosemide - Chest x-ray requested to exclude tuberculosis = "moderate bilateral pulmonary opacities are present, most likely representing pulmonary edema or pneumonia. The heart is mildly enlarged in size. Right-sided dialysis catheter has tip in the SVC.Due to the significant pulmonary alveolar opacities bilaterally, tuberculosis cannot be effectively excluded on this radiograph." - Ordered CT chest - NT-Pro BNP = [id number] - Continue home atenolol, losartan, calcitriol - Daily weights - Strict I/O - Cardiac diet, 2 L fluid restriction, 2 g Na restriction # Suspect Type II Non-ST Segment Elevation Myocardial Infarction (Demand Ischemia) due to above # History of Cerebrovascular Accident # Hypertension - Evaluation thus far: - EKG: without STEMI criteria, trend - Serial troponin: 103.6 -> 2592.6 -> 2326.6 -> 2150.5 - Transthoracic echocardiogram = "1. normal left ventricular ejection fraction 50-55% 2. moderate diastolic dysfunction 3. mild mitral regurgitation 4. mild tricuspid regurgitation 5. mild aortic insufficiency 6. moderate pulmonary hypertension with right ventricular systolic pressure of 55-60 mmHg" - D-dimer = 1978 - Management plan: - Consult Cardiology and spoke with Dr. Wilks - recommendations appreciated - Plans for nuclear stress test in the morning - S/p aspirin 324 mg PO x 1 - Continue aspirin, rosuvastatin, atenolol, losartan - Continue home clopidogrel # Elevated D-Dimer - D-Dimer = 1978 - Bilateral lower extremity Doppler = "no DVT in either lower extremity." - V/Q scan = "very low probability of acute pulmonary embolism, allowing for technically limited assessment as above. Areas of suspected tracer retention may relate to air trapping as detailed above." # Type II Diabetes Mellitus - Hold home pioglitazone - Continue correction scale insulin # Anemia of Chronic Kidney Disease - Hgb stable - S/P 1 unit pRBCs this admission thus far - Continue home epoetin # Microscopic Hematuria - Noted on urinalysis - advised to follow-up with PCP on discharge for further evaluation Nadir Goldberg M.D.
[2022-07-30 06:29] LABS: Potassium 3.5 mEq/L (3.5-5.1)
[2022-07-30] MEDS: SERTRALINE HCL 50 MG TAB PO SCH (08:23)
[2022-07-30] MEDS: ASPIRIN 81 MG CHEWABLE TABLET PO SCH (08:23)
[2022-07-30] MEDS: DOCUSATE NA 100 MG CAP PO SCH (08:24)
[2022-07-30] MEDS: CLOPIDOGREL 75 MG TABLET PO SCH (08:24)
[2022-07-30] MEDS: CALCITROL 0.25 MCG CAP PO SCH (08:24)
[2022-07-30] MEDS: SPIRONOLACTONE 25 MG TABLET PO SCH (08:24)
[2022-07-30] MEDS: AMINO ACIDS/PROTEIN HYDROLYS 30 ML LIQUID.PKT PO SCH ×2 (08:25→21:00)
[2022-07-30] MEDS: HEPARIN 5000 UNIT/ML 1 ML VIAL SQ SCH ×2 (08:25→21:00)
[2022-07-30] MEDS: TORSEMIDE 20 MG TAB PO SCH ×2 (08:25→16:32)
[2022-07-30] MEDS: DORZOLAMIDE HCL OPTH SCH ×2 (09:34→22:15)
[2022-07-30] MEDS: TIMOLOL MALEAT OPTH SCH ×2 (09:34→22:15)
--- NOTE | 2022-07-30 09:41 | P.CNS ---
Date of Consult: 07/30/22 Reason for Consult: r/o TB Chief Complaint: Anasarca History of Present Illness: Patient is a 57 yo male with a history of left-sided stroke, diabetes, hypertension and chronic renal failure who [facility] with complaints of shortness of breath. He was found to have pulmonary edema and anasarca and was admitted for further management. Allergies No Known Allergies Allergy (Unverified 07/23/22 17:25) Home medications list reviewed: Yes Home Medications: Acetaminophen [Tylenol] 650 mg PO Q6HP PRN 07/23/22 Amlodipine [Norvasc] 10 mg PO DAILY 07/23/22 Calcitrol [Rocaltrol] 0.25 mcg PO DAILY 07/23/22 Clopidogrel Bisulfate [Plavix] 75 mg PO DAILY 07/23/22 Docusate Sodium 100 mg PO DAILY 07/23/22 Dorzolamide HCl/Timolol Maleat [Dorzolamide-Timolol Eye Drops] 10 ml OP Q12H 07/23/22 Hydralazine HCl 100 mg PO TID 07/23/22 Lactulose 30 ml PO DAILYPRN PRN 07/23/22 Latanoprost Ophth [Xalatan 0.005%*] 1 drops LEFT EYE BEDTIME 07/23/22 Pioglitazone HCl 15 mg PO DAILY 07/23/22 Sertraline [Zoloft] 50 mg PO DAILY 07/23/22 - Past Medical/Surgical History Diabetic: Yes -: Diabetes -: Hypertension -: Stroke -: Chronic renal failure - Social History Smoking Status: Former smoker Place of Residence: [facility] Review of Systems 10-point ROS is otherwise unremarkable Physical Examination Temp Pulse Resp BP Pulse Ox 97.0 F 61 18 138/68 95 07/30/22 08:00 07/30/22 08:25 07/30/22 08:00 07/30/22 08:25 07/30/22 08:00 General: Alert, In no apparent distress, Oriented x3 HEENT: Atraumatic, Normocephalic, Other (Blind Right Eye) Neck: Supple, JVD not distended Respiratory: Normal air movement, Diminished Cardiovascular: Normal pulses Gastrointestinal: Normal bowel sounds, Soft and benign Musculoskeletal: No clubbing, No swelling Integumentary: No rashes, No breakdown Neurological: Normal speech, Normal tone, Normal affect Laboratory Data - Reviewed Microbiology Data - Reviewed Imagings Data: - CT Chest 07/29: "[id number] interstitial lung opacities probably represents pulmonary edema. Small to moderate bilateral pleural effusions. Posterior left lung base alveolar opacity is most likely compressive atelectasis. The probability of tuberculosis is felt to be low, although cannot be completely excluded on the basis of this CT" Conclusions/Impression: Problem List Diabetes Hypertension Hx CVA ESRD Pulmonary Hypertension Anasarca Acute on Chronic Decompensated Diastolic CHF Anemia of chronic disease Rule out TB for dialysis placement - CT Chest to rule out TB obtained 07/29: "[id number] interstitial lung opacities probably represents pulmonary edema. Small to moderate bilateral pleural effusions. Posterior left lung base alveolar opacity is most likely compressive atelectasis. The probability of tuberculosis is felt to be low, although cannot be completely excluded on the basis of this CT" - PPD skin test administered on 07/29 at 1920. - AFB smear and culture 07/28: Pending Recommendations - Please read TB skin test 48-72 hours after administration, 07/31 at 1920 - follow up with AFB smear and culture - Patient not currently on antibiotics. No indication for antibiotics at this time. Continue current plan of care per primary Case discussed with Yusuf Salter.
--- NOTE | 2022-07-30 16:12 | P.PN ---
Nephrology note (S) Pt seen in stable condition, denies any acute dyspnea, has been tolerating HD sessions well. Contreras remains in place Vitals, medications blood work and imaging reviewed in the chart NAD. Obese. b/l air entry, diminished at bases. RRR. Soft Abd. ND, NT, contreras removed LE Edema 2+ distally. Awake, alert, oriented A/P) Progressive CKD in the setting of diabetic and hypertensive nephropathy with hx of proteinuria, now ESRD with initiation of dialysis -s/p HD yesterday, metab profile stable, next HD tmrw. CM consulted to obtain chair time at OP unit, DESTINI Mckeon. HTN with CKD/ CHF -BP improved with dialysis and volume removal, cont current meds. Cont DOUG inhibitors since pt now on HD Diastolic CHF, A/C Acute hypoxic Respiratory Failure with acute pulm edema. -Clinically stable -Cont loop diuretics pt is non oliguric -Added Spironolactone since pt now on HD and K is not elevated and studies have shown potential benefit extending to this sub-group of pts -Cont UF on HD to establish EDW Christopher Hayes MD, SERGO
--- NOTE | 2022-07-30 18:47 | P.PN ---
Subjective Date of Service: 07/30/22 Chief Complaint: Anasarca No acute events overnight. He reports that he is doing well. He is pending dialysis chair placement, but per policy, he has to be evaluated for tuberculosis. He denies any symptoms at this time. Unable to definiteively exclude tuberculosis on x-ray or CT chest. PPD was placed on 07/29/2022 @ 19:20. Review of Systems 10-point ROS is otherwise unremarkable General: Weakness (generalized) Physical Examination - Vital Signs Temperature: 97.9 F Blood Pressure: 145/61 Pulse: 69 Respirations: 18 Pulse Ox (%): 98 - Studies Medications List Reviewed: Yes Assessment And Plan - Plan - Physical Exam General: Alert, In no apparent distress, Oriented x3 HEENT: Atraumatic, Sclerae nonicteric Neck: JVD not distended Respiratory: Diminished, with faint bibasilar rales Cardiovascular: Regular rate/rhythm, No murmurs, Edema (1+ BLE pitting edema) Gastrointestinal: Normal bowel sounds, Soft, Non-distended, No tenderness Musculoskeletal: No clubbing Integumentary: No rashes Neurological: Normal speech, Normal affect # Anasarca due to Acute on Chronic Decompensated Diastolic Congestive Heart Failure with Preserved Ejection Fraction on End-Stage Renal Disease # Acute Respiratory Failure secondary to Pulmonary Edema s/p intubation with subsequent extubation - resolved # Moderate Pulmonary Hypertension - Consulted Cardiology and spoke with Dr. Wilks - recommendations appreciated - Pulmonology and Nephrology consulted - recommendations appreciated - Transthoracic echocardiogram = "1. normal left ventricular ejection fraction 50-55% 2. moderate diastolic dysfunction 3. mild mitral regurgitation 4. mild tricuspid regurgitation 5. mild aortic insufficiency 6. moderate pulmonary hy pertension with right ventricular systolic pressure of 55-60 mmHg" - Volume removal via hemodialysis and IV furosemide - Chest x-ray requested to exclude tuberculosis = "moderate bilateral pulmonary opacities are present, most likely representing pulmonary edema or pneumonia. The heart is mildly enlarged in size. Right-sided dialysis catheter has tip in the SVC.Due to the significant pulmonary alveolar opacities bilaterally, tuberculosis cannot be effectively excluded on this radiograph." - CT chest = "[id number] interstitial lung opacities probably represents pulmonary edema. Small to moderate bilateral pleural effusions. Posterior left lung base alveolar opacity is most likely compressive atelectasis. The probability of tuberculosis is felt to be low, although cannot be completely excluded on the basis of this CT." - PPD placed on 07/29/2022 @ 19:20 - NT-Pro BNP = 97459 - Continue home atenolol, losartan, calcitriol - Daily weights - Strict I/O - Cardiac diet, 2 L fluid restriction, 2 g Na restriction # Suspect Type II Non-ST Segment Elevation Myocardial Infarction (Demand Ischemia) due to above # History of Cerebrovascular Accident # Hypertension - Evaluation thus far: - EKG: without STEMI criteria, trend - Serial troponin: 103.6 -> 2592.6 -> 2326.6 -> 2150.5 - Transthoracic echocardiogram = "1. normal left ventricular ejection fract ion 50-55% 2. moderate diastolic dysfunction 3. mild mitral regurgitation 4. mild tricuspid regurgitation 5. mild aortic insufficiency 6. moderate pulmonary hypertension with right ventricular systolic pressure of 55-60 mmHg" - D-dimer = 1978 - Management plan: - Consult Cardiology and spoke with Dr. Wilks - recommendations appreciated - Plans for nuclear stress test today, but machine is currently unavailable - S/p aspirin 324 mg PO x 1 - Continue aspirin, rosuvastatin, atenolol, losartan - Continue home clopidogrel # Elevated D-Dimer - D-Dimer = 1978 - Bilateral lower extremity Doppler = "no DVT in either lower extremity." - V/Q scan = "very low probability of acute pulmonary embolism, allowing for technically limited assessment as above. Areas of suspected tracer retention may relate to air trapping as detailed above." # Type II Diabetes Mellitus - Hold home pioglitazone - Continue correction scale insulin # Anemia of Chronic Kidney Disease - Hgb stable - S/P 1 unit pRBCs this admission thus far - Continue home epoetin # Microscopic Hematuria - Noted on urinalysis - advised to follow-up with PCP on discharge for further evaluation Nadir Goldberg M.D.
[2022-07-30] MEDS: LATANOPROST OPTH SCH (21:00)
[2022-07-30] MEDS: ROSUVASTATIN 10 MG TAB PO SCH (22:08)
[2022-07-30] MEDS: atenoloL 25 MG TAB PO SCH (22:15)
[2022-07-31 06:40] LABS: Hematocrit 23.6 % (39.6-49.0)
[2022-07-31 06:58] LABS: Potassium 3.6 mEq/L (3.5-5.1)
[2022-07-31] MEDS: TORSEMIDE 20 MG TAB PO SCH ×2 (08:46→17:03)
[2022-07-31] MEDS: SPIRONOLACTONE 25 MG TABLET PO SCH (08:46)
[2022-07-31] MEDS: ASPIRIN 81 MG CHEWABLE TABLET PO SCH (08:46)
[2022-07-31] MEDS: CALCITROL 0.25 MCG CAP PO SCH (08:47)
[2022-07-31] MEDS: CLOPIDOGREL 75 MG TABLET PO SCH (08:47)
[2022-07-31] MEDS: DOCUSATE NA 100 MG CAP PO SCH (08:47)
[2022-07-31] MEDS: SERTRALINE HCL 50 MG TAB PO SCH (08:47)
[2022-07-31] MEDS: AMINO ACIDS/PROTEIN HYDROLYS 30 ML LIQUID.PKT PO SCH ×2 (08:48→20:51)
[2022-07-31] MEDS: HEPARIN 5000 UNIT/ML 1 ML VIAL SQ SCH ×2 (09:00→20:52)
[2022-07-31] MEDS: DORZOLAMIDE HCL OPTH SCH ×2 (09:48→20:52)
[2022-07-31] MEDS: TIMOLOL MALEAT OPTH SCH ×2 (09:48→20:52)
[2022-07-31] MEDS ORDERED: FENTANYL CITR 100 MCG/2 ML IV PRN (10:30)
[2022-07-31] MEDS ORDERED: LORazepam 2 MG/ML VIAL IV PRN (10:30)
--- NOTE | 2022-07-31 19:53 | P.PN ---
Subjective Date of Service: 07/31/22 Chief Complaint: Anasarca No acute events overnight. He reports no concerns this morning. PPD was placed on 07/29/2022 @ 19:20 - which can be read as early as 19:20 this evening. Review of Systems 10-point ROS is otherwise unremarkable General: Weakness (generalized) Physical Examination - Vital Signs Temperature: 97.7 F Blood Pressure: 153/71 Pulse: 59 Respirations: 16 Pulse Ox (%): 98 - Studies Medications List Reviewed: Yes Assessment And Plan - Plan - Physical Exam General: Alert, In no apparent distress, Oriented x3 HEENT: Atraumatic, Sclerae nonicteric Neck: JVD not distended Respiratory: Diminished, with faint bibasilar rales Cardiovascular: Regular rate/rhythm, No murmurs, Edema (1+ BLE pitting edema) Gastrointestinal: Normal bowel sounds, Soft, Non-distended, No tenderness Musculoskeletal: No clubbing Integumentary: No rashes Neurological: Normal speech, Normal affect # Anasarca due to Acute on Chronic Decompensated Diastolic Congestive Heart Failure with Preserved Ejection Fraction on End-Stage Renal Disease # Acute Respiratory Failure secondary to Pulmonary Edema s/p intubation with subsequent extubation - resolved # Moderate Pulmonary Hypertension - Consulted Cardiology and spoke with Dr. Wilks - recommendations appreciated - Pulmonology and Nephrology consulted - recommendations appreciated - Transthoracic echocardiogram = "1. normal left ventricular ejection fraction 50-55% 2. moderate diastolic dysfunction 3. mild mitral regurgitation 4. mild tricuspid regurgitation 5. mild aortic insufficiency 6. moderate pulmonary hypertension with right ventricular systolic pressure of 55-60 mmHg" - Volume removal via hemodialysis and IV furosemide - Chest x-ray requested to exclude tuberculosis = "moderate bilateral pulmonary opacities are present, most likely representing pulmonary edema or pneumonia. The heart is mildly enlarged in size. Right-sided dialysis catheter h as tip in the SVC.Due to the significant pulmonary alveolar opacities bilaterally, tuberculosis cannot be effectively excluded on this radiograph." - CT chest = "[id number] interstitial lung opacities probably represents pulmonary edema. Small to moderate bilateral pleural effusions. Posterior left lung base alveolar opacity is most likely compressive atelectasis. The probability of tuberculosis is felt to be low, although cannot be completely excluded on the basis of this CT." - PPD placed on 07/29/2022 @ 19:20 - which can be read as early as 19:20 this evening - NT-Pro BNP = 00321 - Continue home atenolol, losartan, calcitriol - Daily weights - Strict I/O - Cardiac diet, 2 L fluid restriction, 2 g Na restriction # Suspect Type II Non-ST Segment Elevation Myocardial Infarction (Demand Ischemia) due to above # History of Cerebrovascular Accident # Hypertension - Evaluation thus far: - EKG: without STEMI criteria, trend - Serial troponin: 103.6 -> 2592.6 -> 2326.6 -> 2150.5 - Transthoracic echocardiogram = "1. normal left ventricular ejection fraction 50-55% 2. moderate diastolic dysfunction 3. mild mitral regurgitation 4. mild tricuspid regurgitation 5. mild aortic insufficiency 6. moderate pulmonary hypertension with right ventricular systolic pressure of 55-60 mmHg" - D-dimer = 1978 - Management plan: - Consult Cardiology and spoke with Dr. Wilks - recommendations appreciated - Plans for nuclear stress test today, but machine is currently unavailable - S/p aspirin 324 mg PO x 1 - Continue aspirin, rosuvastatin, atenolol, losartan - Continue home clopidogrel # Elevated D-Dimer - D-Dimer = 1978 - Bilateral lower extremity Doppler = "no DVT in either lower extremity." - V/Q scan = "very low probability of acute pulmonary embolism, allowing for technically limited assessment as above. Areas of suspected tracer retention may relate to air trapping as detailed above." # Type II Diabetes Mellitus - Hold home pioglitazone - Continue correction scale insulin # Anemia of Chronic Kidney Disease - Hgb stable - S/P 1 unit pRBCs this admission thus far - Continue home epoetin # Microscopic Hematuria - Noted on urinalysis - advised to follow-up with PCP on discharge for further evaluation Nadir Goldberg M.D.
--- NOTE | 2022-07-31 20:47 | P.PN ---
Date of Service: 07/31/22 Vital Signs Temp Pulse Resp BP Pulse Ox 97.7 F 59 16 153/71 H 98 07/31/22 19:52 07/31/22 19:52 07/31/22 19:52 07/31/22 19:52 07/31/22 19:52 Medications Acetaminophen (Acetaminophen 325 Mg Tablet) 650 mg PO Q6HP PRN PRN Reason: Pain scale 2-4 (Mild)or T>101 Amino Acids (Amino Acids/Protein Hydrolys 30 Ml Liquid.Pkt) 30 ml PO BID [facility] Last Admin: 07/31/22 08:48 Dose: 30 ml Aspirin (Aspirin 81 Mg Chewable Tablet) 81 mg PO DAILY [facility] Last Admin: 07/31/22 08:46 Dose: 81 mg Atenolol (Atenolol 25 Mg Tab) 25 mg PO BEDTIME [facility] Last Admin: 07/30/22 22:15 Dose: 25 mg Calcitriol (Calcitrol 0.25 Mcg Cap) 0.25 mcg PO DAILY [facility] Last Admin: 07/31/22 08:47 Dose: 0.25 mcg Clopidogrel Bisulfate (Clopidogrel 75 Mg Tablet) 75 mg PO DAILY [facility] Last Admin: 07/31/22 08:47 Dose: 75 mg Docusate Sodium (Docusate Na 100 Mg Cap) 100 mg PO DAILY [facility] Last Admin: 07/31/22 08:47 Dose: 100 mg Fentanyl Citrate (Fentanyl Citr 100 Mcg/2 Ml) 25 mcg IV Q4HP PRN PRN Reason: Pain scale 8-10 (Severe) Heparin Sodium (Porcine) (Heparin 5000 Unit/Ml 1 Ml Vial) 5,000 unit SQ Q12HR [facility] Last Admin: 07/31/22 09:00 Dose: Not Given Home Med (Latanoprost Ophth [Xalatan 0.005%*]) 1 drops OPTH BEDTIME [facility] Last Admin: 07/30/22 21:00 Dose: Not Given Home Med (Dorzolamide Hcl/Timolol Maleat [Dorzolamide-Timolol Eye Drops]) 1 ml OPTH Q12H [facility] Last Admin: 07/31/22 09:48 Dose: Not Given Lactulose (Lactulose 20 Gm/30 Ml Ucup) 20 gm PO DAILYPRN PRN PRN Reason: CONSTIPATION Lorazepam (Lorazepam 2 Mg/Ml Vial) 2 mg IV Q2HP PRN PRN Reason: Sedation-Propofol not effect Mannitol (Mannitol 25% 12.5 Gm/50 Ml Vial) 25 gm IV 1X PRN PRN Reason: DIALYSIS Last Admin: 07/29/22 10:15 Dose: 25 gm Melatonin (Melatonin 5 Mg Tablet) 5 mg PO BEDTIME PRN PRN PRN Reason: INSOMNIA Last Admin: 07/28/22 21:27 Dose: 5 mg Rosuvastatin Calcium (Rosuvastatin 10 Mg Tab) 10 mg PO BEDTIME [facility] Last Admin: 07/30/22 22:08 Dose: 10 mg Sertraline HCl (Sertraline Hcl 50 Mg Tab) 50 mg PO DAILY [facility] Last Admin: 07/31/22 08:47 Dose: 50 mg Sodium Chloride (Flush Normal Saline 10 Ml) 10 ml IV BID [facility] Last Admin: 07/31/22 08:48 Dose: 10 ml Spironolactone (Spironolactone 25 Mg Tablet) 25 mg PO DAILY [facility] Last Admin: 07/31/22 08:46 Dose: 25 mg Torsemide (Torsemide 20 Mg Tab) 40 mg PO BIDL [facility] Last Admin: 07/31/22 17:03 Dose: 40 mg Assessment/ Plan: Nephrology No dyspnea No chest pain No acute events overnight Vitals, medications blood work and imaging reviewed in the chart NAD. Obese. CTA. RRR. Soft Abd. No C/C. LE Edema trace. No rash. AAO. Normal speech. ESRD Proteinuria -HD TTS; Seen and examined on HD -HBV negative -HD placement pending -ID Consult for TB status; PPD negative -CT chest reviewed Hypokalemia -Replete potassium -Continue spironolactone HTN with CKD/ CHF -Continue Atenolol Diastolic CHF, A/C Acute Respiratory Failure -Acute HD with UF -Low sodium diet -Continue Torsemide -Continue Spironolactone Anemia in chronic illness -PRBC PRN -Retacrit PRN CKD MBD -Continue Calcitriol Case reviewed with Dr. Goldberg
[2022-07-31] MEDS: ROSUVASTATIN 10 MG TAB PO SCH (20:50)
[2022-07-31] MEDS: atenoloL 25 MG TAB PO SCH (20:51)
[2022-07-31] MEDS: LATANOPROST OPTH SCH (20:52)
[2022-08-01 04:48] LABS: Hematocrit 26.7 % (39.6-49.0)
[2022-08-01 06:01] LABS: Potassium 3.7 mEq/L (3.5-5.1)
[2022-08-01] MEDS: ASPIRIN 81 MG CHEWABLE TABLET PO SCH (08:33)
[2022-08-01] MEDS: CALCITROL 0.25 MCG CAP PO SCH (08:33)
[2022-08-01] MEDS: DOCUSATE NA 100 MG CAP PO SCH (08:33)
[2022-08-01] MEDS: TORSEMIDE 20 MG TAB PO SCH ×2 (08:33→16:00)
[2022-08-01] MEDS: SERTRALINE HCL 50 MG TAB PO SCH (08:34)
[2022-08-01] MEDS: AMINO ACIDS/PROTEIN HYDROLYS 30 ML LIQUID.PKT PO SCH ×2 (08:34→20:37)
[2022-08-01] MEDS: CLOPIDOGREL 75 MG TABLET PO SCH (08:34)
[2022-08-01] MEDS: SPIRONOLACTONE 25 MG TABLET PO SCH (08:34)
[2022-08-01] MEDS: HEPARIN 5000 UNIT/ML 1 ML VIAL SQ SCH ×2 (09:28→20:38)
[2022-08-01] MEDS: TIMOLOL MALEAT OPTH SCH ×2 (09:58→20:38)
[2022-08-01] MEDS: DORZOLAMIDE HCL OPTH SCH ×2 (09:58→20:38)
[2022-08-01 15:22] LABS: Albumin, (SPE) 3.7 g/dL (3.8-4.8); Alpha-1-Globulins 0.4 g/dL (0.2-0.3); Alpha-2-Globulins 0.9 g/dL (0.5-0.9); Gamma Globulins 0.5 g/dL (0.8-1.7); INTERPRETATION REPORT
[2022-08-01 18:51] LABS: Hematocrit 28.1 % (39.6-49.0)
--- NOTE | 2022-08-01 19:08 | P.PN ---
Subjective Date of Service: 08/01/22 Chief Complaint: Anasarca No acute events overnight. His PPD read was negative, effectively excluding tuberculosis. SW notified. Cardiology would like to obtain nuclear stress test prior to discharge. Review of Systems 10-point ROS is otherwise unremarkable General: Weakness (generalized) Physical Examination - Vital Signs Temperature: 99.5 F Blood Pressure: 147/70 Pulse: 62 Respirations: 20 Pulse Ox (%): 97 - Studies Medications List Reviewed: Yes Assessment And Plan - Plan - Physical Exam General: Alert, In no apparent distress, Oriented x3 HEENT: Atraumatic, Sclerae nonicteric Neck: JVD not distended Respiratory: Diminished, with faint bibasilar rales Cardiovascular: Regular rate/rhythm, No murmurs, Edema (1+ BLE pitting edema) Gastrointestinal: Soft, Non-distended, No tenderness Musculoskeletal: No clubbing, PPD on RUE is with 0 mm induration Integumentary: No rashes Neurological: Normal speech, Normal affect # Anasarca due to Acute on Chronic Decompensated Diastolic Congestive Heart Failure with Preserved Ejection Fraction on End-Stage Renal Disease # Acute Respiratory Failure secondary to Pulmonary Edema s/p intubation with subsequent extubation - resolved # Moderate Pulmonary Hypertension - Consulted Cardiology and spoke with Dr. Wilks - recommendations appreciated - Pulmonology and Nephrology consulted - recommendations appreciated - Transthoracic echocardiogram = "1. normal left ventricular ejection fraction 50-55% 2. moderate diastolic dysfunction 3. mild mitral regurgitation 4. mild tricuspid regurgitation 5. mild aortic insufficiency 6. moderate pulmonary hypertension with right ventricular systolic pressure of 55-60 mmHg" - Volume removal via hemodialysis and IV furosemide - Chest x-ray requested to exclude tuberculosis = "moderate bilateral pulmonary opacities are present, most likely representing pulmonary edema or pneumonia. The heart is mildly enlarged in size. Right-sided dialysis catheter has tip in the SVC.Due to the significant pulmonary alveolar opacities bilaterally, tuberculosis cannot be effectively excluded on this radiograph." - CT chest = "[id number] interstitial lung opacities probably represents pulmonary edema. Small to moderate bilateral pleural effusions. Posterior left lung base alveolar opacity is most likely compressive at electasis. The probability of tuberculosis is felt to be low, although cannot be completely excluded on the basis of this CT." - PPD placed on 07/29/2022 is negative for tuberculosis - anticipate dis charge once outpatient dialysis chair is confirmed. - NT-Pro BNP = 17283 - Continue home atenolol, losartan, calcitriol - Daily weights - Strict I/O - Cardiac diet, 2 L fluid restriction, 2 g Na restriction # Suspect Type II Non-ST Segment Elevation Myocardial Infarction (Demand Ischemia) due to above # History of Cerebrovascular Accident # Hypertension - Evaluation thus far: - EKG: without STEMI criteria, trend - Serial troponin: 103.6 -> 2592.6 -> 2326.6 -> 2150.5 - Transthoracic echocardiogram = "1. normal left ventricular ejection fraction 50-55% 2. moderate diastolic dysfunction 3. mild mitral regurgitation 4. mild tricuspid regurgitation 5. mild aortic insufficiency 6. moderate pulmonary hypertension with right ventricular systolic pressure of 55-60 mmHg" - D-dimer = 1978 - Management plan: - Consult Cardiology and spoke with Dr. Wilks - recommendations appreciated - Plans for nuclear stress test tomorrow - S/p aspirin 324 mg PO x 1 - Continue aspirin, rosuvastatin, atenolol, losartan - Continue home clopidogrel # Elevated D-Dimer - D-Dimer = 1978 - Bilateral lower extremity Doppler = "no DVT in either lower extremity." - V/Q scan = "very low probability of acute pulmonary embolism, allowing for technically limited assessment as above. Areas of suspected tracer retention may relate to air trapping as detailed above." # Type II Diabetes Mellitus - Hold home pioglitazone - Continue correction scale insulin # Anemia of Chronic Kidney Disease - Hgb stable - S/P 1 unit pRBCs this admission thus far - Continue home epoetin # Microscopic Hematuria - Noted on urinalysis - advised to follow-up with PCP on discharge for further e valuation Nadir Goldberg M.D.
[2022-08-01] MEDS: atenoloL 25 MG TAB PO SCH (20:37)
[2022-08-01] MEDS: ROSUVASTATIN 10 MG TAB PO SCH (20:37)
[2022-08-01] MEDS: LATANOPROST OPTH SCH (20:38)
--- NOTE | 2022-08-01 21:50 | P.PN ---
Date of Service: 08/01/22 Vital Signs Temp Pulse Resp BP Pulse Ox 99.5 F 62 20 147/70 H 97 08/01/22 21:44 08/01/22 21:44 08/01/22 21:44 08/01/22 21:44 08/01/22 21:44 Medications Acetaminophen (Acetaminophen 325 Mg Tablet) 650 mg PO Q6HP PRN PRN Reason: Pain scale 2-4 (Mild)or T>101 Amino Acids (Amino Acids/Protein Hydrolys 30 Ml Liquid.Pkt) 30 ml PO BID [facility] Last Admin: 08/01/22 20:37 Dose: 30 ml Aspirin (Aspirin 81 Mg Chewable Tablet) 81 mg PO DAILY [facility] Last Admin: 08/01/22 08:33 Dose: 81 mg Atenolol (Atenolol 25 Mg Tab) 25 mg PO BEDTIME [facility] Last Admin: 08/01/22 20:37 Dose: 25 mg Calcitriol (Calcitrol 0.25 Mcg Cap) 0.25 mcg PO DAILY [facility] Last Admin: 08/01/22 08:33 Dose: 0.25 mcg Clopidogrel Bisulfate (Clopidogrel 75 Mg Tablet) 75 mg PO DAILY [facility] Last Admin: 08/01/22 08:34 Dose: 75 mg Docusate Sodium (Docusate Na 100 Mg Cap) 100 mg PO DAILY [facility] Last Admin: 08/01/22 08:33 Dose: 100 mg Fentanyl Citrate (Fentanyl Citr 100 Mcg/2 Ml) 25 mcg IV Q4HP PRN PRN Reason: Pain scale 8-10 (Severe) Heparin Sodium (Porcine) (Heparin 5000 Unit/Ml 1 Ml Vial) 5,000 unit SQ Q12HR [facility] Last Admin: 08/01/22 20:38 Dose: Not Given Home Med (Latanoprost Ophth [Xalatan 0.005%*]) 1 drops OPTH BEDTIME [facility] Last Admin: 08/01/22 20:38 Dose: Not Given Home Med (Dorzolamide Hcl/Timolol Maleat [Dorzolamide-Timolol Eye Drops]) 1 ml OPTH Q12H [facility] Last Admin: 08/01/22 20:38 Dose: Not Given Lactulose (Lactulose 20 Gm/30 Ml Ucup) 20 gm PO DAILYPRN PRN PRN Reason: CONSTIPATION Lorazepam (Lorazepam 2 Mg/Ml Vial) 2 mg IV Q2HP PRN PRN Reason: Sedation-Propofol not effect Mannitol (Mannitol 25% 12.5 Gm/50 Ml Vial) 25 gm IV 1X PRN PRN Reason: DIALYSIS Last Admin: 07/29/22 10:15 Dose: 25 gm Melatonin (Melatonin 5 Mg Tablet) 5 mg PO BEDTIME PRN PRN PRN Reason: INSOMNIA Last Admin: 07/28/22 21:27 Dose: 5 mg Rosuvastatin Calcium (Rosuvastatin 10 Mg Tab) 10 mg PO BEDTIME [facility] Last Admin: 08/01/22 20:37 Dose: 10 mg Sertraline HCl (Sertraline Hcl 50 Mg Tab) 50 mg PO DAILY [facility] Last Admin: 08/01/22 08:34 Dose: 50 mg Sodium Chloride (Flush Normal Saline 10 Ml) 10 ml IV BID [facility] Last Admin: 08/01/22 20:37 Dose: 10 ml Spironolactone (Spironolactone 25 Mg Tablet) 25 mg PO DAILY [facility] Last Admin: 08/01/22 08:34 Dose: 25 mg Torsemide (Torsemide 20 Mg Tab) 40 mg PO BIDL [facility] Last Admin: 08/01/22 16:00 Dose: 40 mg Assessment/ Plan: Nephrology No dyspnea No chest pain No acute events overnight Vitals, medications blood work and imaging reviewed in the chart NAD. Obese. CTA. RRR. Soft Abd. No C/C. LE Edema trace. No rash. AAO. Normal speech. ESRD Proteinuria -HD TTS -HBV negative -HD placement pending -ID Consult for TB status; PPD negative -CT chest reviewed Hypokalemia -Replete potassium prn -Continue spironolactone HTN with CKD/ CHF -Continue Atenolol Diastolic CHF, A/C Acute Respiratory Failure -Acute HD with UF -Low sodium diet -Continue Torsemide -Continue Spironolactone Anemia in chronic illness -PRBC PRN -Retacrit PRN CKD MBD -Continue Calcitriol Case reviewed with Dr. Goldberg
--- NOTE | 2022-08-02 01:55 | PN ---
Date of Progress Note: 08/01/2022 Subjective: Seen by bedside. Doing clinically well. Review of Systems: Does not have any chest pain, shortness of breath, orthopnea, or cough. No nausea, vomiting, diarrhe a. All other systems reviewed are negative. Physical Examination: Vital Signs: Reviewed. Head and Neck: Pupils are equal, reactive to light. Intact eye movements. No JVD. No cervical lym phadenopathy. Neck is supple. Thyroid is not enlarged. Lungs: Clear to auscultation bilaterally. No rhonchi, wheezing, or crackles. No accessory muscle u se. Heart: Regular rate and rhythm. No extra sounds. Abdomen: Soft, nontender. Bowel sounds positive. No organomegaly. No masses or hernia. No rigidi ty or rebound. Extremities: No clubbing or cyanosis. Intact pulses. Skin: No rash. Neurologic: Alert, awake. No acute focal deficits appreciated. Investigations: BUN is 55, creatinine 3.29, and hemoglobin is 9.1. Assessment And Recommendations: 1.Elevated troponin, which can be demand ischemia; however, troponin peaked at 2600. Ischemic tatyana p is indicated and stress test machine is not functional. Plan for coronary angiogram. Discussed ri sks and benefits and alternatives were explained, the patient agreed to proceed. 2.End-stage renal disease, now on hemodialysis. Continue current management. 3.Chronic anemia chronic illnesses. No bleeding. This is being monitored. SR/MODL Voice ID: [id number] Report ID: [id number]
[2022-08-02 08:19] VITALS: TEMP 97.4
[2022-08-02] MEDS: SPIRONOLACTONE 25 MG TABLET PO SCH (08:59)
[2022-08-02] MEDS: ASPIRIN 81 MG CHEWABLE TABLET PO SCH (09:00)
[2022-08-02] MEDS: AMINO ACIDS/PROTEIN HYDROLYS 30 ML LIQUID.PKT PO SCH (09:00)
[2022-08-02] MEDS: DOCUSATE NA 100 MG CAP PO SCH (09:00)
[2022-08-02] MEDS: HEPARIN 5000 UNIT/ML 1 ML VIAL SQ SCH (09:00)
[2022-08-02] MEDS: SERTRALINE HCL 50 MG TAB PO SCH (09:00)
[2022-08-02] MEDS: TORSEMIDE 20 MG TAB PO SCH ×2 (09:00→16:18)
[2022-08-02] MEDS: CALCITROL 0.25 MCG CAP PO SCH (09:00)
[2022-08-02] MEDS: CLOPIDOGREL 75 MG TABLET PO SCH (09:00)
[2022-08-02] MEDS: DORZOLAMIDE HCL OPTH SCH (09:41)
[2022-08-02] MEDS: TIMOLOL MALEAT OPTH SCH (09:41)
[2022-08-02] MEDS ORDERED: LIDOCAINE 1% 20 ML MDV ONE (09:45)
[2022-08-02] MEDS ORDERED: FENTANYL CITR 100 MCG/2 ML ONE (09:45)
[2022-08-02] MEDS ORDERED: HEPA 1000U/500MLS 2,000 UNIT/1,000 ML BAG IV ONE (09:45)
[2022-08-02] MEDS ORDERED: HEPARIN 5000 UNIT/ML 1 ML VIAL ONE (09:46)
[2022-08-02] MEDS ORDERED: ASPIRIN 325 MG TAB ONE (09:46)
[2022-08-02] MEDS ORDERED: VERAPAMIL HCL 10 MG/4 ML VIAL IV ONE (09:46)
[2022-08-02] MEDS ORDERED: TICAGRELOR 90 MG TABLET PO ONE (09:46)
[2022-08-02] MEDS ORDERED: CLOPIDOGREL 75 MG TABLET ONE (09:46)
[2022-08-02] MEDS ORDERED: MIDAZOLAM HCL 2 MG/2 ML INJ ONE (09:46)
[2022-08-02] MEDS ORDERED: HEPARIN 10,000 UNIT/10 ML VIAL IV ONE (09:46)
[2022-08-02] MEDS ORDERED: ATROPINE SULF 1 MG/10 ML SYR IV ONE (09:47)
[2022-08-02] MEDS ORDERED: NA CHLORIDE 0.9% 500 ML ONE (11:06)
--- NOTE | 2022-08-02 11:45 | P.PN ---
Date of Service: 08/02/22 Subjective: ROS: 10 point ROS as noted above, otherwise negative Physical Exam: GEN: Alert, oriented, NAD HEENT: Normal conjunctiva, sclera anicteric CV: Regular rate & rhythm, 1+ BLE pitting edema Pulm: Nonlabered respiraitons on room air, diminished at bases b/l, faint bibasilar rales ABD: Soft, nontender, nondistended MSK: No joint tenderness Integumentary: No rashes Neuro: Normal speech, normal affect vitals reviewed Problem List: Anasarca due to Acute on Chronic Decompensated Diastolic CHF with Preserved Ejection Fraction on ESRD Acute Respiratory Failure secondary to Pulmonary Edema s/p intubation with subsequent extubation - resolved Suspect Type II NSTEMI History of CVA Hypertension Elevated D-Dimer DM2 Anemia of Chronic Kidney Disease Microscopic Hematuria Anasarca due to Acute on Chronic Decompensated Diastolic CHF with Preserved Ejection Fraction on ESRD Acute Respiratory Failure secondary to Pulmonary Edema s/p intubation with subsequent extubation - resolved CXR (07/28): "moderate bilateral pulmonary opacities are present, most likely representing pulmonary edema or pneumonia. CT(07/29): "[id number] interstitial lung opacities probably represents pulmonary edema. Small to moderate bilateral pleural effusions. Posterior left lung base alveolar opacity is most likely compressive atelectasis. The probability of tuberculosis is felt to be low, although cannot be completely excluded on the basis of this CT." PPD placed on 07/29/2022 is negative for tuberculosis Pulmonology and Nephrology consulted dialysis - TTS schedule IV lasix Continue home atenolol, losartan, calcitriol Daily weights, Strict I/O Suspect Type II NSTEMI History of CVA Hypertension EKG: without STEMI criteria, trend troponins elevated x4 D-dimer = 1978 Cardiology consulted NPO for tentative plan for heart cath today 08/02 Continue aspirin, rosuvastatin, atenolol, losartan Continue home clopidogrel Elevated D-Dimer D-Dimer: 1978 BLE Doppler(07/27): no DVT V/Q scan (07/27): very low probability of acute pulmonary embolism, allowing for technically limited assessment as above. Areas of suspected tracer retention may relate to air trapping DM2 Hold home pioglitazone Continue correction scale insulin Anemia of Chronic Kidney Disease Hgb stable, monitor H&H S/P 1 unit pRBCs Continue home epoetin Microscopic Hematuria Noted on UA - advised to follow-up with PCP on discharge for further evaluation VTE: heparin sq Code: Full Dispo: Home anticipate discharge once outpatient dialysis chair is confirmed.
--- NOTE | 2022-08-02 13:19 | OP ---
Date of Procedure: 08/02/2022 Surgeon: JOEL ANAYA Procedures Performed: 1.Selective coronary angiogram. 2.Left heart catheterization. Indication: Non-ST elevation myocardial infarction. Access: Right radial artery 6-Arabic closed with TR band. Complications: He had a brief episode of V-Fib for about 10 seconds after we crossed the aortic valv e, successfully treated with 200 joules in unsynchronized fashion converting him to normal sinus rhyt hm. Bleeding: Less than 20 mL. Description Of Procedure: After risks, benefits, alternatives were explained, the patient agreed to procedure and signed informed consent. The patient was brought into the cardiac catheterization [facility], prepped and draped in the usual sterile fashion. Then, we accessed the right radial artery u sing pediatric micropuncture kit, placed a 6-Arabic Slender sheath and took 5-Arabic [place] 4.0 cathet er into the aortic root over a J-wire, engaged the left main, took standard views and then engaged th e RCA, took standard views and then pushed the catheter over the wire into the LV and trying to measu re LVEDP. He went into V-Fib and catheter was removed from the ventricle and 200 joules in unsynchro nized fashion, electrical cardioversion was performed successfully and the patient remained sinus sys tem afterwards. Denies having any chest pain or any complaints. I removed the catheter and sheath, placed TR band with good hemostasis. Findings: 1.Left main; large, long and normal. 2.LAD; proximal diffuse 50% and there is a patent stent after that and then the second OM branch com es off with patent stent, but the diagonal 1 branch has no significant disease otherwise. Then, the LAD is healthy in the mid segment and then the diagonal 2 branch has rather large vessel as big as th e LAD and it has mid 80% and also the LAD in the mid segment has a long segment that is 90% stenosed and distal LAD, there is a focal 40% stenosis. 3.Left circumflex; it is moderate-sized vessel and has proximal 70% to 80% stenosis and RCA large an d dominant with also mid 70% to 80% stenosis. Conclusion: Severe multivessel coronary artery disease. Recommendations: CABG evaluation. If he is not a surgical candidate, we will plan to do PCI, which is going to be multivessel starting with the LAD and then the RCA. The patient will be transferred t o the [facility] for CT Surgery evaluation. /JOHN Voice ID: [id number] Report ID: [id number]
[2022-08-02 15:06] VITALS: O2SAT 95
[2022-08-02 18:28] VITALS: BP 165/72
--- NOTE | 2022-08-02 19:55 | PN ---
Date of Progress Note: 08/02/2022 Subjective: Seen by bedside. Doing well. No chest pain. Review of Systems: No chest pain, shortness of breath, orthopnea, cough. No nausea, vomiting, diarrhea. All other syst ems reviewed and they were negative. Physical Examination: Vital Signs: Reviewed. Head and Neck: Pupils are equal, reactive to light. Intact eye movements. No JVD. No cervical lym phadenopathy. Neck is supple. Thyroid is not enlarged. Lungs: Clear to auscultation bilaterally. No rhonchi, wheezing, or crackles. No accessory muscle u se. Heart: Regular rate and rhythm. No extra sounds. Abdomen: Soft, nontender. Bowel sounds positive. No organomegaly. No masses or hernia. No rigidi ty or rebound. Extremities: No edema, clubbing, or cyanosis. Intact pulses. Skin: No rash. Neurologic: Alert, awake, oriented x3. No acute focal deficits appreciated. Investigations: Labs were reviewed. Assessment And Recommendations: 1.Non-ST elevation myocardial infarction, status post coronary angiogram today, severe multivessel d isease was found. Transfer to [facility] for coronary artery bypass graft evaluation. If he is not a candidate for surgery, then we will plan for multivessel percutaneous coronary interve ntion that is going to be high risk. 2.End-stage renal disease, on hemodialysis. Continue current management. 3.Dyslipidemia. Start Lipitor 40 mg at bedtime. SR/MODL Voice ID: [id number] Report ID: [id number]
== END 2022-08-02 18:50 | disposition short-term general hospital (02) | DRG 673 ==
LOC: ER 14:49 → ERHOLD 17:01 → 3RD-ICU 19:33 → 2ND 07-28 13:33
PROVIDERS: ADMIT Internal Medicine Sleep Medicine; ATTEND Hospitalist
PROC: 5A09457 Assistance with Respiratory Ventilation, 24-96 Consecutive Hours, Continuous Positive Airway Pressure (ICD-10-PCS; 2022-07-23)
PROC: 30233N1 Transfusion of Nonautologous Red Blood Cells into Peripheral Vein, Percutaneous Approach (ICD-10-PCS; 2022-07-24)
PROC: 02HV33Z Insertion of Infusion Device into Superior Vena Cava, Percutaneous Approach (ICD-10-PCS; 2022-07-25)
PROC: 5A1945Z Respiratory Ventilation, 24-96 Consecutive Hours (ICD-10-PCS; 2022-07-25)
PROC: 0BH17EZ Insertion of Endotracheal Airway into Trachea, Via Natural or Artificial Opening (ICD-10-PCS; 2022-07-25)
PROC: 0JH63XZ Insertion of Tunneled Vascular Access Device into Chest Subcutaneous Tissue and Fascia, Percutaneous Approach (ICD-10-PCS; principal; 2022-07-25 08:00)
PROC: 4A023N7 Measurement of Cardiac Sampling and Pressure, Left Heart, Percutaneous Approach (ICD-10-PCS; 2022-08-02)
PROC: B2111ZZ Fluoroscopy of Multiple Coronary Arteries using Low Osmolar Contrast (ICD-10-PCS; 2022-08-02)
DX: N17.9 Acute kidney failure, unspecified (principal); I21.A1 Myocardial infarction type 2; I50.33 Acute on chronic diastolic (congestive) heart failure; J96.21 Acute and chronic respiratory failure with hypoxia; I13.2 Hypertensive heart and chronic kidney disease with heart failure and with stage 5 chronic kidney disease, or end stage renal disease; I69.354 Hemiplegia and hemiparesis following cerebral infarction affecting left non-dominant side; E87.20 Acidosis, unspecified; N18.6 End stage renal disease; D63.1 Anemia in chronic kidney disease; E11.22 Type 2 diabetes mellitus with diabetic chronic kidney disease; H54.61 Unqualified visual loss, right eye, normal vision left eye; E87.6 Hypokalemia; I08.3 Combined rheumatic disorders of mitral, aortic and tricuspid valves; I27.20 Pulmonary hypertension, unspecified; R31.29 Other microscopic hematuria; Z78.1 Physical restraint status; Z99.2 Dependence on renal dialysis; Z95.5 Presence of coronary angioplasty implant and graft
CPT/HCPCS: 36415; 36600; 71045; 71250; 76000; 76937; 78582; 80048; 80053; 80069; 80074; 80076; 81001; 82607; 82805; 82947; 83540; 83735; 83880; 84132; 84165; 84443; 84484; 84550; 85014; 85018; 85025; 85379; 85610; 86021; 86038; 86160; 86706; 86850; 86900; 86901; 86920; 87389; 87635; 90935; 92960; 93005; 93306; 93458; 93970; 94002; 94003; 94660; 96374; 97110; 97161; 97530; 99285; A4216; A9540; A9558; C1752; C1893; J0461; J1100; J1644; J1940; J2001; J2150; J2250; J2370; J2704; J3010; J7030; J7040; P9016; P9047; Q5106; Q9966